=== PATIENT | female | born 1980 | race Caucasian/White ===

== ENCOUNTER 2020-10-11 09:31 | Inpatient (IN) | payer SELFPAY ==
[2020-10-11] VITALS (45 sets, daily range): BP systolic 149–212; BP diastolic 93–151; PULSE 0–107; RESP 10–31; TEMP 36.6–36.7; O2SAT 93–98; BMI 42.5
--- NOTE | 2020-10-11 10:38 | XRR_ITS ---
PROCEDURE INFORMATION: Exam: XR Chest, 1 View Exam date and time: 10/11/2020 10:53 AM Age: 40 years old Clinical indication: Cough and dyspnea; Additional info: Dyspnea/cough TECHNIQUE: Imaging protocol: XR of the chest Views: 1 view. COMPARISON: CT Chest/Abdomen/Pelvis w IV* 06/22/2016 12:01 AM FINDINGS: Lungs: Interstitial prominence, without acute infiltrate. Pleural space: No pleural effusion. Heart/Mediastinum: Cardiac silhouette upper limits of normal in size. Bones/joints: Unremarkable. XR/XR chest 1V portable [id number] IMPRESSION: Interstitial prominence, without acute infiltrate.
--- NOTE | 2020-10-11 10:38 | CT_ITS ---
WS: [id number] CT HEAD NONCONTRAST HISTORY: L side numbness TECHNIQUE: Contiguous axial imaging performed through the brain in 2.5 mm imaging. Bone and soft tiss ue windows. Sagittal and coronal reformats reviewed. All CT scans at [facility] use at ast one of these dose optimization techniques: automated exposure control; mA and/or kV adjustment pe r patient size (includes targeted exams where dose is matched to clinical indication); or iterative r econstruction. DLP: 777.42 mGy.cm COMPARISON: None available. No acute intracranial hemorrhage, midline shift or mass effect. No significant atrophy. Prior lacunar infarct in the RIGHT thalamus. Ventricles: Normal size with no hydrocephalus. Paranasal sinuses: As visualized are clear. Mastoid air cells: Well pneumatized. Calvarium and scalp: Skull is intact with no soft tissue edema or swelling. CT/CT head wo con* [id number] IMPRESSION: 1. No acute intracranial hemorrhage or edema. 2. Prior RIGHT thalamic lacunar infarct.
--- NOTE | 2020-10-11 10:40 | ECG_ITS ---
[facility] Test Date: 2020-10-11 Pat Name: Susie Fitzgerald Department: Room: Gender: Female Jukebox Checker: ts : 1980 Requested By: Chepe Morton Order Number: [id number] Adolfo MD: Jeni Harris M.D. Measurements Intervals [place] Rate: 104 P: 41 DE: 124 QRS: 0 QRSD: 88 T: 96 QT: 349 QTc: 460 Interpretive Statements SINUS T[address] DEVIATION AND MODERATE T-WAVE ABNORMALITY, CONSIDER LATERAL ISCHEMIA [-0.1+ mV T WAVE IN I/aVL/V5/V6] No previous ECG available for comparison Electronically Signed On 10-11-2020 20:27:19 LEARNING ENGINEER by Jeni Harris M.D. [id number]
--- NOTE | 2020-10-11 10:55 | ED_ITS ---
HPI - Weakness General: Chief complaint: Weakness Stated complaint: Numbness on Left Side of Body/All over Time Seen by Provider: 10/11/20 10:37 History of Present Illness: HPI Narrative: 40-year-old female presents emergency room complaining of various numbness in her lower extremities and then in her entire left side over the last couple weeks. Initially it seemed to begin with proximal anterior right thigh having numbness or paresthesias. States she can feel like hot or cold sensation on the thigh. Then it began to be on the left side she says both the arm and the leg. She denies difficulty speech swallowing or vision she denies any difficulty with any ataxia or gait. She does have markedly elevated blood pressure and has not been taking anything for it or been followed for by a physician. She also complaining of generalized weakness on her left side. MD Complaint: focal weakness, numbness, lack of energy and difficulty walking Onset (ago): day(s) Duration: intermittent Location: LUE and LLE Migration: distal Severity: moderate Quality: tingling and numbness Relieving factors: none Exacerbating factors: none Associated symptoms: Denies chest pain, chills, confusion, melena, decreased appetite, diaphoresis, dysuria, easy bruising, fever(s), headache(s), myalgias, nausea, rash, short of breath, syncope or vomiting Review of Systems Const: Denies: fever(s), chills or diaphoresis ENMT: Denies: throat pain, ear or mastoid pain, nasal discharge or nasal congestion Card: Denies: chest pain or syncope Resp: Denies: dyspnea, productive cough or non-productive cough GI: Denies: nausea, vomiting or melena : Denies: dysuria Skin/Breast: Denies: rash or pruritus Neuro: Denies: headache(s) or confusion Macho/Lymph: Denies: easy bruising [facility] ED PFSH: Medical History (Updated 10/11/20 @ 13:16 by Chepe Raman DO) HTN (hypertension) Female Reproductive History: Date of last menstrual period: 10/11/20 Physical Exam Const: COMMON NORMALS: no acute distress GENERAL APPEARANCE: cooperative and comfortable ORIENTATION/CONSCIOUSNESS: Yes awake, Yes oriented to person, Yes oriented to place and Yes oriented to time HENMT: COMMON NORMALS: normocephalic, atraumatic and hearing grossly normal bilaterally HEAD & SCALP: normocephalic and atraumatic Neck/C-Spine: COMMON NORMALS: no JVD Resp: COMMON NORMALS: normal respiratory effort, No retractions, No use of accessory muscles and clear to auscultation bilaterally AUSCULTATION: clear to auscultation bilaterally Cardio: COMMON NORMALS: no JVD, regular rate, regular rhythm and No murmurs present (Cardio) RATE: regular rate RHYTHM: regular rhythm GI: COMMON NORMALS: Soft to palpation and No hepatosplenomegaly present AUSCULTATION: Yes normoactive bowel sounds PALPATION: Yes Soft to palpation, No Tenderness to palpation present (GI), No Guarding due to palpation present (GI) and Yes No hepatosplenomegaly present Extremity: COMMON NORMALS: normal to inspection, capillary refill normal, no clubbing, cyanosis or edema, no calf tenderness and no pedal edema Neuro: SENSORIUM/ORIENTATION: Yes oriented to person, Yes oriented to place and Yes oriented to time Skin: COMMON NORMALS: no rashes or lesions noted GENERAL SKIN EXAM: no rashes or lesions noted Course Vital Signs: Vital signs: Vital Signs Temperature 98.1 F 10/11/20 09:49 Pulse Rate 77 10/11/20 12:52 Respiratory Rate 22 H 10/11/20 12:52 Blood Pressure 191/145 10/11/20 12:52 Pulse Oximetry 97 10/11/20 12:52 MDM - Weakness MDM Narrative: Medical decision making narrative: Patient has persistent symptoms in the left side also has a right thumb aches stroke subacute. Her blood pressure is not responded well to interventions thus far will admit her for accelerated hypertension with evidence of a stroke. Lab Data: Labs: Lab Results 10/11/20 10/11/20 10/11/20 Range/Units 10:20 10:20 10:20 WBC 11.5 H (4.0-10.0) 10^3/ uL RBC 5.80 H (4.1-5.3) 10^6/u L Hgb 15.8 H (11.5-15.3) g/dL Hct 52.6 H (37.0-47.0) % MCV 90.7 (81-99) fL MCH 27.2 L (28.0-34.0) pg MCHC 30.0 (30.0-36.0) g/dL RDW 14.4 (12.1-15.1) % Plt Count 272 (130-400) 10^3/c mm MPV 9.7 (7.4-10.4) fL Neut % (Auto) 71.7 % Lymph % (Auto) 18.4 % [place] % (Auto) 5.2 % Eos % (Auto) 3.1 % Baso % (Auto) 1.0 % Neut # (Auto) 8.24 H (1.8-7.7) 10^3/u L Lymph # (Auto) 2.1 (0.8-4.8) 10^3/u L [place] # (Auto) 0.6 (0.2-0.9) 10^3/u L Eos # (Auto) 0.4 (0.0-0.8) 10^3/u L Baso # (Auto) 0.1 (0.0-0.1) 10^3/u L Nucleated RBC % (a uto) 0 % Nucleated RBCs # 0.0 /100WBC Sodium 136 (136-145) mmol/L Potassium 4.2 (3.5-5.1) mmol/L Chloride 100 (98-107) mmol/L Carbon Dioxide 24 (22-29) mmol/L Anion Gap 16.2 (5-19) BUN 13 (6-20) mg/dL Creatinine 1.2 H (0.5-0.9) mg/dL GFR Calculation 50.0 L (90-130) mL/min Glucose 85 (65-115) mg/dL Calculated Osmolal ity 281 L (285-295) mOsm/k g Calcium 9.2 (8.5-10.5) mg/dL Total Bilirubin 0.2 (0.15-1.2) mg/dL AST 19 (0-32) U/L ALT 19 (0-33) U/L Alkaline Phosphata se 78 (35-105) IU/L Troponin T Baselin e 12 H (0-10) ng/L Troponin T 120 Min [place] (0-10) ng/L Delta Troponin T (0-10) ABS# Total Protein 7.6 (6.6-8.7) g/dL Albumin 4.1 (3.5-5.2) g/dL Globulin 3.5 (1.3-4.6) g/dL Urine Color (Yellow) Urine Appearance (CLEAR) Urine pH (5-7) Ur Specific Gravit y (1.005-1.030) Urine Protein (Negative) Urine Glucose (UA) (Normal) Urine Ketones (Negative) Urine Blood (Negative) Urine Nitrate (Negative) Urine Bilirubin (Negative) Urine Urobilinogen (Negative) mg/dL Ur Leukocyte Callie ase (Negative) Urine RBC (0-2) /hpf Urine WBC (0-5) /hpf Ur Squamous Epith Cells (0-5) /hpf Amorphous Sediment /hpf Urine Bacteria (NONE) /hpf Hyaline Casts /lpf Urine Mucus /hpf 10/11/20 10/11/20 Range/Units 11:55 12:25 WBC (4.0-10.0) 10^3/ uL RBC (4.1-5.3) 10^6/u L Hgb (11.5-15.3) g/dL Hct (37.0-47.0) % MCV (81-99) fL MCH (28.0-34.0) pg MCHC (30.0-36.0) g/dL RDW (12.1-15.1) % Plt Count (130-400) 10^3/c mm MPV (7.4-10.4) fL Neut % (Auto) % Lymph % (Auto) % [place] % (Auto) % Eos % (Auto) % Baso % (Auto) % Neut # (Auto) (1.8-7.7) 10^3/u L Lymph # (Auto) (0.8-4.8) 10^3/u L [place] # (Auto) (0.2-0.9) 10^3/u L Eos # (Auto) (0.0-0.8) 10^3/u L Baso # (Auto) (0.0-0.1) 10^3/u L Nucleated RBC % (a uto) % Nucleated RBCs # /100WBC Sodium (136-145) mmol/L Potassium (3.5-5.1) mmol/L Chloride (98-107) mmol/L Carbon Dioxide (22-29) mmol/L Anion Gap (5-19) BUN (6-20) mg/dL Creatinine (0.5-0.9) mg/dL GFR Calculation (90-130) mL/min Glucose (65-115) mg/dL Calculated Osmolal ity (285-295) mOsm/k g Calcium (8.5-10.5) mg/dL Total Bilirubin (0.15-1.2) mg/dL AST (0-32) U/L ALT (0-33) U/L Alkaline Phosphata se (35-105) IU/L Troponin T Baselin e (0-10) ng/L Troponin T 120 Min [place] 11.02 H (0-10) ng/L Delta Troponin T -0.98 L (0-10) ABS# Total Protein (6.6-8.7) g/dL Albumin (3.5-5.2) g/dL Globulin (1.3-4.6) g/dL Urine Color Yellow (Yellow) Urine Appearance Clear (CLEAR) Urine pH 5 (5-7) Ur Specific Gravit y 1.020 (1.005-1.030) Urine Protein Neg (Negative) Urine Glucose (UA) Trace H (Normal) Urine Ketones Negative (Negative) Urine Blood 3+ H (Negative) Urine Nitrate Negative (Negative) Urine Bilirubin Neg (Negative) Urine Urobilinogen Norm (Negative) mg/dL Ur Leukocyte Callie ase Negative (Negative) Urine RBC 0-4 H (0-2) /hpf Urine WBC 0-4 H (0-5) /hpf Ur Squamous Epith Cells 0-4 H (0-5) /hpf Amorphous Sediment Trace /hpf Urine Bacteria 1+ H (NONE) /hpf Hyaline Casts Rare /lpf Urine Mucus 1+ /hpf Discharge Plan Discharge Patient Disposition: Admitted As Inpatient Clinical Impression: HTN (hypertension), Hypertensive crisis, CVA (cerebral vascular accident) Condition: Stable Prescriptions: No Action Aspir-81 81 mg Tablet,Delayed Release (Dr/Ec) 162 - 324 mg PO PRN RF: 0 Coding Level of Care Code ED Beauty Consultant for Chg Jose Elias
[2020-10-11 10:57] LABS: Basophils # 0.1 10^3/uL (0.0-0.1); Eosinophils # 0.4 10^3/uL (0.0-0.8); Eosinophils % 3.1 %; Hematocrit 52.6 % (37.0-47.0); Hemoglobin 15.8 g/dL (11.5-15.3); Lymphocytes # 2.1 10^3/uL (0.8-4.8); Lymphocytes % 18.4 %; Mean Corpuscular Hemoglobin 27.2 pg (28.0-34.0); Mean Corpuscular Volume 90.7 fL (81-99); Mean Platelet Volume 9.7 fL (7.4-10.4); Monocytes # 0.6 10^3/uL (0.2-0.9); Monocytes % 5.2 %; Neutrophils # 8.24 10^3/uL (1.8-7.7); Neutrophils % 71.7 %; Nucleated Red Blood Cells % 0 %; Platelet Count 272 10^3/cmm (130-400); Red Cell Distribution Width 14.4 % (12.1-15.1); White Blood Count 11.5 10^3/uL (4.0-10.0)
[2020-10-11] MEDS: amlodipine 5 mg Tablet PO (10:59)
[2020-10-11] MEDS: metoprolol tartrate 1 mg/1 mL SDV 5 mL 5 MG IV ×2 (10:59→12:49)
[2020-10-11] MEDS: metoprolol tartrate 25 mg Tablet PO (10:59)
[2020-10-11 11:10] LABS: Alanine Aminotransferase 19 U/L (0-33); Albumin Level 4.1 g/dL (3.5-5.2); Alkaline Phosphatase 78 IU/L (35-105); Anion Gap 16.2 (5-19); Aspartate Amino Transferase 19 U/L (0-32); Blood Urea Nitrogen 13 mg/dL (6-20); Calcium 9.2 mg/dL (8.5-10.5); Carbon Dioxide 24 mmol/L (22-29); Chloride 100 mmol/L (98-107); Globulin 3.5 g/dL (1.3-4.6); Glucose 85 mg/dL (65-115); Osmolality Calculated 281 mOsm/kg (285-295); Potassium 4.2 mmol/L (3.5-5.1); Sodium 136 mmol/L (136-145); Total Bilirubin 0.2 mg/dL (0.15-1.2); Total Protein 7.6 g/dL (6.6-8.7)
[2020-10-11 11:11] LABS: Troponin(5th) Baseline 12 ng/L (0-10)
[2020-10-11 12:16] LABS: Add Urine Microscopic? YES; Bilirubin Urine Neg (Negative); Blood Urine 3+ (Negative); Glucose Urine UA Trace (Normal); Ketones Urine Negative (Negative); Leukocyte Esterase Urine Negative (Negative); Nitrate Urine Negative (Negative); Protein Urine Neg (Negative); Urine Appearance Clear (CLEAR); Urine Color Yellow (Yellow); Urobilinogen Urine Norm (Negative); pH Urine 5 (5-7)
[2020-10-11 12:17] LABS: RBC Urine 0-4 /hpf (0-2); WBC Urine 0-4 /hpf (0-5)
[2020-10-11 12:18] LABS: Add Urine Culture? No; Amorphous Sediment Urine TRACE /hpf; Bacteria Urine 1+ /hpf; Hyaline Casts Urine RARE /lpf; Mucus Urine 1+ /hpf; Squamous Epithelial Cell Urine 0-4 /hpf (0-5)
--- NOTE | 2020-10-11 12:40 | ECG_ITS ---
[facility] Test Date: 2020-10-11 Pat Name: Susie Fitzgerald Department: Room: Gender: Female Tool Room Supervisor: : 1980 Requested By: Chepe Morton Order Number: [id number] Adolfo MD: Jeni Harris M.D. Measurements Intervals [place] Rate: 80 P: 29 AK: 158 QRS: 10 QRSD: 93 T: 119 QT: 410 QTc: 474 Interpretive Statements SINUS RHYTHM ST DEVIATION AND MODERATE T-WAVE ABNORMALITY, CONSIDER LATERAL ISCHEMIA [-0.1+ mV T WAVE IN I/aVL/V5/V6] No previous ECG available for comparison Electronically Signed On 10-11-2020 20:50:42 SENIOR SALES ENGINEER by Jeni Harris M.D. [id number] f
[2020-10-11] MEDS: cloNIDine 0.1 mg Tablet PO (12:48)
[2020-10-11] MEDS: nitroglycerin 1 gm/inch oint Pkt 1 INCH TOPICAL (12:50)
[2020-10-11 12:53] LABS: Troponin 5 2HR 11.02 ng/L (0-10)
[2020-10-11 13:01] LABS: Troponin 5 2HR Delta -0.98 ABS# (0-10)
[2020-10-11] MEDS: nicardipine 20 MG/200 ML PREMIX 50 MG IV (13:33)
--- NOTE | 2020-10-11 16:03 | P.HP_ITS ---
Providers/Chief Complaint Admitting Physician: Karly Mendoza MD Chief Complaint: Numbness on Left Side of Body/All over History of Present Illness Susie Fitzgerald is a 40 year old female with a PMH HTN who pressnts to the ER today c/o left side body numbness and weakness. NIHSS on presentation was 0. Ct head showed old right thalamic lacunar infarct, no new changes. She was found to have hypertensive emergency with BP 212/120, received iv metoprolol, cllonidine and amlodipine iwthout significant improvement. Therafter started on nicardipine infusion and admitted to [facility]. SHe c/o some headache presnetly. denies chest pain, dyspnea, palpitations. Uncertain as to timing of her CVA noted on ct head. Reports being diagnosed with HTN few years ago. Has not been evaluted for secondary HTN in the past. Review of Systems General: Reports: 10 or more systems reviewed and unremarkable except in HPI and below Const: Denies: fever(s), chills or body aches Eyes: Denies: change in vision, blurry vision or photophobia ENMT: Reports: hoarseness; Denies: throat pain, enlarged tonsils, odynophagia or nasal congestion Card: Denies: chest pain, palpitations, irregular heart rhythm, edema, swelling of feet/ankles, lightheadedness, pre-syncope, dyspnea on exertion or orthopnea Resp: Denies: dyspnea, productive cough, non-productive cough, wheezing, stridor, pain on inspiration, change in phlegm color, hemoptysis or chest congestion GI: Denies: abdominal pain, nausea, vomiting, hematemesis, coffee ground emesis, dysphagia, heartburn, diarrhea, constipation, GI cramping, change in stool character, hematochezia or melena : Denies: flank pain, difficulty voiding, dysuria, urinary frequency, urinary urgency, urinary hesitancy or hematuria Musc: Denies: neck pain, back pain, extremity pain, joint swelling, joint warmth or deformity Neuro: Denies: headache(s), numbness in extremities, weakness in extremities, sensory changes, difficulty walking, frequent falls, dizziness, vertigo, behavioral changes, Slurred speech present or seizure-like activity Psych: Denies: anxiety, depression, suicidal ideation or homicidal ideation Endo: Denies: polyuria, polydipsia, tired all the time, cold intolerance or hot flashes Macho/Lymph: Denies: easy bruising or easy bleeding Medications/Allergies Home Medications Medication Instructions Recorded Confirmed Last Taken Type aspirin [Aspir-81] 162 - 324 mg PO PRN 10/11/20 10/11/20 Unknown History Allergies Allergy/AdvReac Type Severity Reaction Status Date / Time No Known Allergies Allergy Verified 10/11/20 13:10 PFSH Acute PFSH: Medical History HTN (hypertension) Female Reproductive History: Date of last menstrual period: 10/11/20 Vitals/I&O/Wt Last Vital Signs Temp 98.1 F 10/11/20 09:49 Pulse 75 10/11/20 13:35 Resp 18 10/11/20 13:35 BP 182/122 10/11/20 13:35 Pulse Ox 96 10/11/20 13:35 10/11/20 10/11/20 10/11/20 06:59 14:59 22:59 Intake Total 33.333 / 33.333 Balance 33.333 / 33.333 Weight last 48 hrs Weight 123.196 kg Physical Exam Const: COMMON NORMALS: no acute distress, average body habitus, patient oriented x3, no limitations, healthy appearing, alert and well nourished HENMT: COMMON NORMALS: normocephalic and atraumatic HEAD & SCALP: normocephalic and atraumatic Eye: COMMON NORMALS: Equal, round and reactive pupils present, EOMs intact bilaterally, conjunctivae normal and no scleral icterus CONJUNCTIVA: Yes conjunctivae normal PUPIL: Yes Equal, round and reactive pupils present Neck/C-Spine: COMMON NORMALS: no JVD Resp: COMMON NORMALS: normal respiratory effort, No retractions, No use of accessory muscles, clear to auscultation bilaterally and percussion normal AUSCULTATION: clear to auscultation bilaterally PERCUSSION: percussion normal Cardio: COMMON NORMALS: no JVD, regular rate, regular rhythm, S1 normal heart sound present, S2 normal heart sound present, No gallops present (Cardio), No clicks present (Cardio), No murmurs present (Cardio), No rub (Cardio) and Peripheral pulses 2+ throughout RATE: regular rate RHYTHM: regular rhythm HEART SOUNDS: S1 normal heart sound present and S2 normal heart sound present PERIPHERAL PULSES: Peripheral pulses 2+ throughout GI: COMMON NORMALS: Normal to inspection, nondistended, normoactive bowel sounds present, Soft to palpation, non-tender, No hepatosplenomegaly present, no masses and no bruits PALPATION: Yes Soft to palpation and Yes No hepatosplenomegaly present Extremity: COMMON NORMALS: normal to inspection, full ROM, capillary refill normal, no joint enlargement, no clubbing, cyanosis or edema, no calf tenderness and no pedal edema Neuro: COMMON NORMALS: patient oriented x3, CN's II-XII intact bilaterally, moves all extremities, no focal motor deficits, no sensory deficits noted, deep tendon reflexes 2+ bilaterally and gait normal SENSORIUM/ORIENTATION: Yes alert Psych: COMMON NORMALS: mental status grossly normal, Normal thought process present, cooperative, normal affect, speech normal, activity/motor behavior normal, denies hallucinations, denies homicidal ideation and denies suicidal ideation SPEECH: Yes normal speech THOUGHT PROCESS: Normal thought process present Skin: COMMON NORMALS: no rashes or lesions noted, no wounds, turgor normal, no jaundice, no petechiae and no mottling GENERAL SKIN EXAM: no rashes or lesions noted and turgor normal Data : 10/11/20 10:20 10/11/20 10:20 A&P Assessment and plan (1) Hypertensive crisis: started on cardene drip after which BP is better controlled overlap with po amlodipine 10mg qd continue ASA 81mg po qd possibility of secondary HTN given young age, hypertensive emergency and past CVA as seen on CT head check serum cortisol, TSH with am labs no radioradial or radiofemoral delay to suspect coarctation may be renovascular in nature given cr elevated at 1.2, if persistent, will check renal artery doppler to evalute for renal artery stenosis may be related to sleep apnea given BMI 42, outpatient sleep study recommended No current signs of heart failure or CVA currently Status: Acute (2) CVA (cerebral vascular accident): old thamalamic infarct, no gross neurological deficits at this time. Status: Acute Attestations Medical Necessity Statement*: >2midnight anticipated for management of hypertensive emergency Coding Level of Care Code Acute Auto Fleet Maintenance Manager [facility] Diagnoses Hypertensive crisis I16.9 CVA (cerebral vascular accident) I63.9
--- NOTE | 2020-10-11 16:40 | ECG_ITS ---
[facility] Test Date: 2020-10-11 Pat Name: Susie Fitzgerald Department: Room: 111 Gender: Female Real Estate Developer: : 1980 Requested By: Chepe Morton Order Number: [id number] Adolfo MD: Jeni Hraris M.D. Measurements Intervals [place] Rate: 80 P: 52 MI: 154 QRS: 1 QRSD: 100 T: 78 QT: 421 QTc: 487 Interpretive Statements SINUS RHYTHM POSSIBLE LEFT ATRIAL ENLARGEMENT [-0.1mV P WAVE IN V1/V2] ST DEVIATION AND MODERATE T-WAVE ABNORMALITY, CONSIDER LATERAL ISCHEMIA [-0.1+ mV T WAVE IN I/aVL/V5/V6] Compared to ECG 10/11/2020 13:57:57 No significant changes Electronically Signed On 10-11-2020 20:48:47 HOSPITAL RECRUITER by Jeni Harris M.D. [email or web address].[employer] IT/store/[id number]
[2020-10-11 17:00] LABS: Troponin 5 6HR 12.32 ng/L (0-10); Troponin 5 6HR Delta 0.32 ng/L (0-12)
[2020-10-11] MEDS: famotidine 20 mg Tablet PO (21:50)
[2020-10-12] VITALS (39 sets, daily range): BP systolic 149–213; BP diastolic 93–140; PULSE 73–90; RESP 13–21; TEMP 36.6–36.9; O2SAT 91–97
[2020-10-12] MEDS: zolpidem 5 mg Tablet PO (02:05)
[2020-10-12 04:49] LABS: Basophils # 0.1 10^3/uL (0.0-0.1); Basophils % 1.2 %; Eosinophils # 0.4 10^3/uL (0.0-0.8); Eosinophils % 3.7 %; Hematocrit 44.6 % (37.0-47.0); Hemoglobin 14.4 g/dL (11.5-15.3); Lymphocytes # 2.5 10^3/uL (0.8-4.8); Lymphocytes % 22.2 %; Mean Corpuscular HGB Conc 32.3 g/dL (30.0-36.0); Mean Corpuscular Hemoglobin 27.3 pg (28.0-34.0); Mean Corpuscular Volume 84.5 fL (81-99); Mean Platelet Volume 10.1 fL (7.4-10.4); Monocytes # 0.6 10^3/uL (0.2-0.9); Monocytes % 5.3 %; Neutrophils # 7.53 10^3/uL (1.8-7.7); Neutrophils % 67.2 %; Nucleated Red Blood Cells % 0 %; Platelet Count 381 10^3/cmm (130-400); Red Blood Count 5.28 10^6/uL (4.1-5.3); Red Cell Distribution Width 14.3 % (12.1-15.1); White Blood Count 11.2 10^3/uL (4.0-10.0)
[2020-10-12 05:10] LABS: Estmated Average Glucose 108; Hemoglobin A1C 5.4 % (4.0-6.0)
[2020-10-12 05:27] LABS: Alanine Aminotransferase 16 U/L (0-33); Albumin Level 3.7 g/dL (3.5-5.2); Alkaline Phosphatase 73 IU/L (35-105); Anion Gap 12.9 (5-19); Aspartate Amino Transferase 17 U/L (0-32); Blood Urea Nitrogen 12 mg/dL (6-20); Calcium 8.9 mg/dL (8.5-10.5); Carbon Dioxide 24 mmol/L (22-29); Chloride 102 mmol/L (98-107); Globulin 3.3 g/dL (1.3-4.6); Glomerular Filtration Rate 61.7 mL/min (90-130); Glucose 87 mg/dL (65-115); Osmolality Calculated 279 mOsm/kg (285-295); Potassium 3.9 mmol/L (3.5-5.1); Sodium 135 mmol/L (136-145); Total Bilirubin 0.4 mg/dL (0.15-1.2)
[2020-10-12 05:30] LABS: Thyroid Stimulating Hormone 2.01 uIU/mL (0.27-4.20)
[2020-10-12 05:38] LABS: Hepatitis A Antibody IgM Non-Reactive (Nonreactive); Hepatitis B Core AB, Total Non-Reactive (Nonreactive); Hepatitis B Surface AB 3.5 (0-8.5); Hepatitis B Surface Antigen Non-Reactive (Nonreactive); Hepatitis C Virus Antibody Non-Reactive (Nonreactive)
[2020-10-12 06:42] LABS: HIV 1 & 2 Antibody Non-Reactive (Non-Reactiv); HIV 1 & 2 Antigen Non-Reactive (Non-Reactiv)
[2020-10-12 06:43] LABS: Cortisol Random 5.09 ug/mL (2.47-19.5)
--- NOTE | 2020-10-12 08:36 | PC.CHAP ---
Pastoral Care Encounter/Spiritual Assessment Type of Contact [] Declined inside sales manager visit [] Patient/Family/Request visit [] Outpatient visit [] Follow-up visit [] Physician referral [] Code/Alert [x] Routine visit [] Staff referral [] Actively dying [] Patient sleeping [] Family support [] [] Out of room [] Palliative care [] [] Receiving care in room [] Pre-surgical visit [] Trauma [] Long length of stay [] ICU visit [] Other: Relational/Emotional Strength [] Patient feels connected with others/family/visitors/staff [] Distress [] Loneliness/isolation [] Abandonment Spirituality of Patient [] Person of Mikaela [] Attends Taoism of their Mikaela [] Believes in Prayer [] Reads Bible or Judaism materials [] There are Spiritual issues to be addressed Dough Mixer Operator Interventions [x] Prayer [x] Active listening [x] Non-anxious presence [x] Spiritual/emotional support [] Crisis/trauma care [] Spiritual counseling [] Bereavement support [] Provided bereavement packet [] Provided Bible/devotional materials [] Provided toy/stuffed animal, coloring book to patient or family member [] Provided Communion [] Anointing/[place] [] Salvation [x] Completed spiritual assessment [] Other: Impact on Illness or Injury [] Angry [] Fearful [] Anxious [] Often cries [] Exhaustion [] Unable to work [] Unable to attend episcopalian [] Unable to walk/stand [] Unable to read [] Unable to drive [] Unable to eat/drink [] Unable to sleep [] Unable to be with family [] Patient intubated [] Other: Summary patient resting well, enjoying breakfast... Time spent with patient 10 min
--- NOTE | 2020-10-12 08:37 | PC.CHAP ---
Pastoral Care Encounter/Spiritual Assessment Type of Contact [] Declined giver visit [] Patient/Family/Request visit [] Outpatient visit [] Follow-up visit [] Physician referral [] Code/Alert [] Routine visit [] Staff referral [] Actively dying [] Patient sleeping [] Family support [] [] Out of room [] Palliative care [] [] Receiving care in room [] Pre-surgical visit [] Trauma [] Long length of stay [] ICU visit [] Other: Relational/Emotional Strength [] Patient feels connected with others/family/visitors/staff [] Distress [] Loneliness/isolation [] Abandonment Spirituality of Patient [] Person of Mikaela [] Attends Samaritan of their Mikaela [] Believes in Prayer [] Reads Bible or Mormon materials [] There are Spiritual issues to be addressed Punch Machine Operator Interventions [] Prayer [] Active listening [] Non-anxious presence [] Spiritual/emotional support [] Crisis/trauma care [] Spiritual counseling [] Bereavement support [] Provided bereavement packet [] Provided Bible/devotional materials [] Provided toy/stuffed animal, coloring book to patient or family member [] Provided Communion [] Anointing/[place] [] Salvation [] Completed spiritual assessment [] Other: Impact on Illness or Injury [] Angry [] Fearful [] Anxious [] Often cries [] Exhaustion [] Unable to work [] Unable to attend yazidi [] Unable to walk/stand [] Unable to read [] Unable to drive [] Unable to eat/drink [] Unable to sleep [] Unable to be with family [] Patient intubated [] Other: Summary Time spent with patient
[2020-10-12] MEDS: famotidine 20 mg Tablet PO (08:58)
[2020-10-12] MEDS: amlodipine 10 mg Tablet PO (08:58)
[2020-10-12] MEDS: hyDRALAzine 10 mg Tablet PO (10:24)
--- NOTE | 2020-10-12 11:02 | P.DS_ITS ---
Discharge Providers Date of Admission: 10/11/20 12:37 Date of Discharge: October 12, 2020 Attending Provider at Admission: Karly Mendoza MD Attending Provider at Discharge: Karly Mendoza MD Diagnoses at Discharge Discharge Diagnosis (1) Hypertensive crisis: Status: Acute (2) CVA (cerebral vascular accident): Status: Acute Reason for Visit Reason for Visit: Numbness on Left Side of Body/All over Hospital Course Hospital Course Susie Fitzgerald is a 40 year old female with a PMH HTN who pressnts to the ER today c/o left side body numbness and weakness. NIHSS on presentation was 0. Ct head showed old right thalamic lacunar infarct, no new changes. She was found to have hypertensive emergency with BP 212/120, received iv metoprolol, cllonidine and amlodipine iwthout significant improvement. Therafter started on nicardipine infusion and admitted to [facility]. Uncertain as to timing of her CVA noted on ct head. Reports being diagnosed with HTN few years ago. Has not been evaluted for secondary HTN in the past. Does not follow with primary care provider due to lack of insurance. Her blood pressure was eventually controlled with nicardipine infusion and this morning also received additional doses of amlodipine, labetalol and Imdur. Blood pressure at the time of discharge is 160/107. Cortisol level was within normal range at 5.09, TSH within range at 2.01. Given 3+ blood noted in urine, possibility of renovascular hypertension was considered. Autoimmune antibody panel is pending at this time. HIV and hepatitis serologies were nonreactive. There was no radial radial or radial femoral delay noted to suggest coarctation of aorta. She will likely need renal imaging as outpatient should she continue to remain hypertensive in spite of being started on medications. Primary care provider has been arranged at the [facility] and she is encouraged to follow-up. Discharge medications include amlodipine hydralazine and metoprolol. Patient has also been encouraged to check her blood pressure twice a day and maintain a chart to take to her next primary care physician visit. Physical Exam Narrative: EXAM NARRATIVE: GEN: Awake, alert and oriented, no acute distress CVS: S1S2 N RS: CTA B/L Abd: Soft, nt/nd , bs+ PROGRESSIVE CARE UNIT REGISTERED NURSE: no focal neuro deficits Discharge Data Data Completed and Pending: Completed Studies During Hospitalization Category Date Time Status CT head wo con* [id number] Stat Cat Scan 10/11/20 10:38 Completed XR chest 1V rita ble [id number] Stat Exams 10/11/20 10:38 Completed Pending at discharge Category Date Time Status YONATAN Profile Rheum atology AM LABS Lab 10/12/20 03:26 Received Labs from last 24 hours 10/12/20 10/12/20 10/12/20 03:26 03:26 03:26 WBC RBC Hgb Hct MCV MCH MCHC RDW Plt Count MPV Neut % (Auto) Lymph % (Auto) Morrow % (Auto) Eos % (Auto) Baso % (Auto) Neut # (Auto) Lymph # (Auto) Morrow # (Auto) Eos # (Auto) Baso # (Auto) Nucleated RBC % (a uto) Nucleated RBCs # Sodium Potassium Chloride Carbon Dioxide Anion Gap BUN Creatinine GFR Calculation Glucose Estimat Average Gl ucose Hemoglobin A1c Calculated Osmolal ity Calcium Total Bilirubin AST ALT Alkaline Phosphata se Troponin T Baselin e Troponin T 120 Min wainwright Delta Troponin T Troponin T Hi Sens 6Hr Troponin T Hi Sens 6Hr Delta Total Protein Albumin Globulin TSH 2.01 Random Cortisol 5.09 Urine Color Urine Appearance Urine pH Ur Specific Gravit y Urine Protein Urine Glucose (UA) Urine Ketones Urine Blood Urine Nitrate Urine Bilirubin Urine Urobilinogen Ur Leukocyte Callie ase Urine RBC Urine WBC Ur Squamous Epith Cells Amorphous Sediment Urine Bacteria Hyaline Casts Urine Mucus YONATAN IFA Animal Tis Res Pending CHRISTINA-1 Antibody Pending SS-A Antibody Pending SS-B Antibody Pending Sm (Harrison) Antibod y Pending OCULAR CARE AIDE Antibody Pending Scl-70 Antibody Pending Anti-ds DNA IgG (C rith) Pending Centromere B Antib jen Pending Thyroid Peroxidase Ab Pending Complement C3c Pending Complement C4c Pending CH50 Classical Pat hway Pending Hepatitis A IgM Ab Hep Bs Antigen Hep Bs Antibody Hep B Core Total A b Hepatitis C Antibo dy HIV 1&2 Ab & HIV 1 Ag HIV 1&2 Antibody 10/12/20 10/12/20 10/12/20 03:26 03:26 03:26 WBC RBC Hgb Hct MCV MCH MCHC RDW Plt Count MPV Neut % (Auto) Lymph % (Auto) Morrow % (Auto) Eos % (Auto) Baso % (Auto) Neut # (Auto) Lymph # (Auto) Morrow # (Auto) Eos # (Auto) Baso # (Auto) Nucleated RBC % (a uto) Nucleated RBCs # Sodium Potassium Chloride Carbon Dioxide Anion Gap BUN Creatinine GFR Calculation Glucose Estimat Average Gl ucose 108 Hemoglobin A1c 5.4 Calculated Osmolal ity Calcium Total Bilirubin AST ALT Alkaline Phosphata se Troponin T Baselin e Troponin T 120 Min wainwright Delta Troponin T Troponin T Hi Sens 6Hr Troponin T Hi Sens 6Hr Delta Total Protein Albumin Globulin TSH Random Cortisol Urine Color Urine Appearance Urine pH Ur Specific Gravit y Urine Protein Urine Glucose (UA) Urine Ketones Urine Blood Urine Nitrate Urine Bilirubin Urine Urobilinogen Ur Leukocyte Callie ase Urine RBC Urine WBC Ur Squamous Epith Cells Amorphous Sediment Urine Bacteria Hyaline Casts Urine Mucus YONATAN IFA Animal Tis Res CHRISTINA-1 Antibody SS-A Antibody SS-B Antibody Sm (Harrison) Antibod y OCULAR CARE AIDE Antibody Scl-70 Antibody Anti-ds DNA IgG (C rith) Centromere B Antib jen Thyroid Peroxidase Ab Complement C3c Complement C4c CH50 Classical Pat [place]way Hepatitis A IgM Ab Non-reactive Hep Bs Antigen Non-reactive Hep Bs Antibody 3.5 Hep B Core Total A b Non-reactive Hepatitis C Antibo dy Non-reactive HIV 1&2 Ab & HIV 1 Ag Non-reactive HIV 1&2 Antibody Non-reactive 10/12/20 10/12/20 10/11/20 03:26 03:26 16:22 WBC 11.2 H RBC 5.28 Hgb 14.4 Hct 44.6 MCV 84.5 D MCH 27.3 L MCHC 32.3 D RDW 14.3 Plt Count 381 MPV 10.1 Neut % (Auto) 67.2 Lymph % (Auto) 22.2 Morrow % (Auto) 5.3 Eos % (Auto) 3.7 Baso % (Auto) 1.2 Neut # (Auto) 7.53 Lymph # (Auto) 2.5 Morrow # (Auto) 0.6 Eos # (Auto) 0.4 Baso # (Auto) 0.1 Nucleated RBC % (a uto) 0 Nucleated RBCs # 0.0 Sodium 135 L Potassium 3.9 Chloride 102 Carbon Dioxide 24 Anion Gap 12.9 BUN 12 Creatinine 1.0 H GFR Calculation 61.7 L Glucose 87 Estimat Average Gl ucose Hemoglobin A1c Calculated Osmolal ity 279 L Calcium 8.9 Total Bilirubin 0.4 AST 17 ALT 16 Alkaline Phosphata se 73 Troponin T Baselin e Troponin T 120 Min wainwright Delta Troponin T Troponin T Hi Sens 6Hr 12.32 H Troponin T Hi Sens 6Hr Delta 0.32 Total Protein 7.0 Albumin 3.7 Globulin 3.3 TSH Random Cortisol Urine Color Urine Appearance Urine pH Ur Specific Gravit y Urine Protein Urine Glucose (UA) Urine Ketones Urine Blood Urine Nitrate Urine Bilirubin Urine Urobilinogen Ur Leukocyte Callie ase Urine RBC Urine WBC Ur Squamous Epith Cells Amorphous Sediment Urine Bacteria Hyaline Casts Urine Mucus YONATAN IFA Animal Tis Res CHRISTINA-1 Antibody SS-A Antibody SS-B Antibody Sm (Harrison) Antibod y OCULAR CARE AIDE Antibody Scl-70 Antibody Anti-ds DNA IgG (C rith) Centromere B Antib jen Thyroid Peroxidase Ab Complement C3c Complement C4c CH50 Classical Pat [place]way Hepatitis A IgM Ab Hep Bs Antigen Hep Bs Antibody Hep B Core Total A b Hepatitis C Antibo dy HIV 1&2 Ab & HIV 1 Ag HIV 1&2 Antibody 10/11/20 10/11/20 10/11/20 12:25 11:55 10:20 WBC RBC Hgb Hct MCV MCH MCHC RDW Plt Count MPV Neut % (Auto) Lymph % (Auto) Morrow % (Auto) Eos % (Auto) Baso % (Auto) Neut # (Auto) Lymph # (Auto) Morrow # (Auto) Eos # (Auto) Baso # (Auto) Nucleated RBC % (a uto) Nucleated RBCs # Sodium Potassium Chloride Carbon Dioxide Anion Gap BUN Creatinine GFR Calculation Glucose Estimat Average Gl ucose Hemoglobin A1c Calculated Osmolal ity Calcium Total Bilirubin AST ALT Alkaline Phosphata se Troponin T Baselin e 12 H Troponin T 120 Min wainwright 11.02 H Delta Troponin T -0.98 L Troponin T Hi Sens 6Hr Troponin T Hi Sens 6Hr Delta Total Protein Albumin Globulin TSH Random Cortisol Urine Color Yellow Urine Appearance Clear Urine pH 5 Ur Specific Gravit y 1.020 Urine Protein Neg Urine Glucose (UA) Trace H Urine Ketones Negative Urine Blood 3+ H Urine Nitrate Negative Urine Bilirubin Neg Urine Urobilinogen Norm Ur Leukocyte Callie ase Negative Urine RBC 0-4 H Urine WBC 0-4 H Ur Squamous Epith Cells 0-4 H Amorphous Sediment Trace Urine Bacteria 1+ H Hyaline Casts Rare Urine Mucus 1+ YONATAN IFA Animal Tis Res CHRISTINA-1 Antibody SS-A Antibody SS-B Antibody Sm (Harrison) Antibod y OCULAR CARE AIDE Antibody Scl-70 Antibody Anti-ds DNA IgG (C rith) Centromere B Antib jen Thyroid Peroxidase Ab Complement C3c Complement C4c CH50 Classical Pat [place]way Hepatitis A IgM Ab Hep Bs Antigen Hep Bs Antibody Hep B Core Total A b Hepatitis C Antibo dy HIV 1&2 Ab & HIV 1 Ag HIV 1&2 Antibody 10/11/20 10:20 WBC RBC Hgb Hct MCV MCH MCHC RDW Plt Count MPV Neut % (Auto) Lymph % (Auto) [place]row % (Auto) Eos % (Auto) Baso % (Auto) Neut # (Auto) Lymph # (Auto) Morrow # (Auto) Eos # (Auto) Baso # (Auto) Nucleated RBC % (a uto) Nucleated RBCs # Sodium 136 Potassium 4.2 Chloride 100 Carbon Dioxide 24 Anion Gap 16.2 BUN 13 Creatinine 1.2 H GFR Calculation 50.0 L Glucose 85 Estimat Average Gl ucose Hemoglobin A1c Calculated Osmolal ity 281 L Calcium 9.2 Total Bilirubin 0.2 AST 19 ALT 19 Alkaline Phosphata se 78 Troponin T Baselin e Troponin T 120 Min wain[place] Delta Troponin T Troponin T Hi Sens 6Hr Troponin T Hi Sens 6Hr Delta Total Protein 7.6 Albumin 4.1 Globulin 3.5 TSH Random Cortisol Urine Color Urine Appearance Urine pH Ur Specific Gravit y Urine Protein Urine Glucose (UA) Urine Ketones Urine Blood Urine Nitrate Urine Bilirubin Urine Urobilinogen Ur Leukocyte Callie ase Urine RBC Urine WBC Ur Squamous Epith Cells Amorphous Sediment Urine Bacteria Hyaline Casts Urine Mucus YONATAN IFA Animal Tis Res CHRISTINA-1 Antibody SS-A Antibody SS-B Antibody Sm (Harrison) Antibod y OCULAR CARE AIDE Antibody Scl-70 Antibody Anti-ds DNA IgG (C rith) Centromere B Antib jen Thyroid Peroxidase Ab Complement C3c Complement C4c CH50 Classical Pat hway Hepatitis A IgM Ab Hep Bs Antigen Hep Bs Antibody Hep B Core Total A b Hepatitis C Antibo dy HIV 1&2 Ab & HIV 1 Ag HIV 1&2 Antibody Vitals: Last Vital Signs Temp 98.4 F 10/12/20 07:23 Pulse 83 10/12/20 07:23 Resp 17 10/12/20 07:23 BP 180/125 10/12/20 07:23 Pulse Ox 95 10/12/20 07:23 Discharge Plan Discharge Patient Disposition: Home Condition: Stable Prescriptions: New hydralazine 10 mg Tablet 25 mg PO TID 30 Days Qty: 225 RF: 0 amlodipine 10 mg Tablet 10 mg PO DAILY 30 Days RF: 0 famotidine 20 mg Tablet 20 mg PO BID Qty: 0 RF: 0 metoprolol succinate 25 mg tablet extended release 24 hr 25 mg PO DAILY Qty: 30 RF: 0 Changed aspirin 81 mg Tablet,Delayed Release (Dr/Ec) 81 mg PO PRN Qty: 0 RF: 0 Discharge Orders: Discharge Order (Routine); Ordered 10/12/20 Ordered By: Karly Mendoza Referrals: YECENIA BAUER [Staff Physician] - 2 weeks Milana Ng FNP-C [Nurse Practitioner] - 10/26/20 10:40 am Discharge Diet: Cardiac and Low Salt Discharge Activity: Increase activity as tolerated Activity Restrictions/Additional Instructions: Check your blood pressure twice a day, maintain a blood pressure chart and take to your primary care appointments Discharge Attestations Time Spent in Discharge Care*: greater than 30 min Quality Metrics Clinical Quality Measures During this hospital stay, did patient experience: None Coding Level of Care Code Acute Heel Attacher for Noris Moctezuma Diagnoses Hypertensive crisis I16.9 CVA (cerebral vascular accident) I63.9
[2020-10-12] MEDS: labetalol 5 mg/mL SDV 20mL 10 MG IVP (11:27)
[2020-10-12] MEDS: isosorbide mononitrate ER 30 mg Tablet PO (12:55)
--- NOTE | 2020-10-12 13:55 | PC.NURSE ---
patient discharged home self care at this time. patient provided with discharge instructions and new medications patient verbalizes understanding of all instructions given IV discontinued cath intact min bleeding noted patient assisted to private vehicle by staff via wheel chair. patient alert oriented and in stable condition.
[2020-10-13 12:18] LABS: COMPLEMENT, TOTAL (CH50) 51 U/mL (31-60)
[2020-10-13 15:18] LABS: COMPLEMENT COMPONENT C3C 153 mg/dL (83-193); COMPLEMENT COMPONENT C4C 33 mg/dL (15-57)
[2020-10-14 15:32] LABS: CENTROMERE B ANTIBODY <1.0 NEG AI (<1.0 NEG); JO-1 ANTIBODY <1.0 NEG AI (<1.0 NEG); RNP ANTIBODY 1.0 POS AI (<1.0 NEG); SCL-70 ANTIBODY <1.0 NEG AI (<1.0 NEG); SJOGREN'S ANTIBODY (SS-A) <1.0 NEG AI (<1.0 NEG); SM ANTIBODY <1.0 NEG AI (<1.0 NEG); SS-B <1.0 NEG AI (<1.0 NEG)
[2020-10-16 11:43] LABS: ANA SCREEN, IFA NEGATIVE (NEGATIVE)
[2020-10-18 00:37] LABS: DNA AB (DS) CRITHIDIA,IFA NEGATIVE (NEGATIVE)
[2020-10-18 10:03] LABS: THYROID PEROXIDASE ANTIBODIES 1 IU/mL (<9)
== END 2020-10-12 13:55 | disposition home or self-care (01) | DRG 305 ==
LOC: ER 16:10 → CSU 16:58
PROVIDERS: Admitting Provider Student in an Organized Health Care Education/Training Program; Emergency Provider Family Medicine; Visit Provider Student in an Organized Health Care Education/Training Program
DX: I16.1 Hypertensive emergency (principal); I10 Essential (primary) hypertension; Z86.73 Personal history of transient ischemic attack (TIA), and cerebral infarction without residual deficits
CPT/HCPCS: 12345; 36415; 70450; 71045; 80053; 81001; 82533; 83036; 84443; 84484; 85025; 86705; 86706; 86709; 86803; 87340; 87806; 93005; 99283; J3490

== ENCOUNTER 2022-07-21 20:27 | Observation (INO) | payer MEDICAID, SELFPAY ==
[2022-07-21] VITALS (25 sets, daily range): BP systolic 107–199; BP diastolic 82–133; PULSE 77–104; RESP 16–22; O2SAT 90–100; BMI 18.3
--- NOTE | 2022-07-21 20:31 | CTR_ITS ---
PROCEDURE INFORMATION: Exam: CT Head Without Contrast Exam date and time: 07/21/2022 8:28 PM Age: 41 years old Clinical indication: Stroke-like symptoms; Headache and vomiting; Additional info: DOLL with vomiting and BP over 200 systolic. History of prior CVA. TECHNIQUE: Imaging protocol: Computed tomography of the head without contrast. Radiation optimization: All CT scans at this facility use at least one of these dose optimization techniques: automated exposure control; mA and/or kV adjustment per patient size (includes targeted exams where dose is matched to clinical indication); or iterative reconstruction. Other technique: STROKE PROTOCOL was implemented. COMPARISON: CT head wo con* [id number] 10/11/2020 11:11 AM RADIATION DOSE METRICS: Total DLP (mGy-cm): 1042.68 FINDINGS: Brain: There are well-defined hypodensities in the basal ganglia and thalami bilaterally consistent with chronic lacunar infarcts. These are more numerous than on the previous examination of 10/11/2020. There is no intracranial mass, hemorrhage or edema. There is a well-defined chronic appearing lacunar infarct in the left mackenzie new from the previous study. Cerebral ventricles: Ventricles are within normal limits of size. Paranasal sinuses: Visualized sinuses are unremarkable. No fluid levels. Mastoid air cells: Visualized mastoid air cells are well aerated. Bones/joints: Unremarkable. No acute fracture. Soft tissues: Unremarkable. CT/CT head wo con* [id number] IMPRESSION: 1. Bilateral chronic appearing lacunar infarcts increased from 10/11/2020. 2. Chronic appearing pontine lacunar infarct new from 10/11/2020. 3. No acute intracranial hemorrhage. ASSESSMENT: ASPECTS ([place] Stroke Program Early CT Score) is 10.
--- NOTE | 2022-07-21 20:31 | CTR_ITS ---
PROCEDURE INFORMATION: Exam: CTA Head With Contrast, Arteriography Exam date and time: 07/21/2022 8:34 PM Age: 41 years old Clinical indication: Pain; Headache; Patient HX: DOLL with vomiting and BP over 200 systolic. History of prior CVA. ; Additional info: Headache HTN TECHNIQUE: Imaging protocol: Computed tomographic angiography of the head with contrast. Exam focused on the arteries. 3D rendering (Not supervised by radiologist): MIP and/or 3D reconstructed images were created by the technologist. Radiation optimization: All CT scans at this facility use at least one of these dose optimization techniques: automated exposure control; mA and/or kV adjustment per patient size (includes targeted exams where dose is matched to clinical indication); or iterative reconstruction. Contrast material: OMNI 350; Contrast volume: 95 ml; Contrast route: INTRAVENOUS (IV); COMPARISON: CT head wo con* [id number] 07/21/2022 8:28 PM RADIATION DOSE METRICS: Total DLP (mGy-cm): 519.02 FINDINGS: ANTERIOR CIRCULATION: Right internal carotid artery: Intracranial segment is patent with no significant stenosis. No aneurysm. Right middle cerebral artery: No occlusion or significant stenosis. No aneurysm. Right anterior cerebral artery: No occlusion or significant stenosis. No aneurysm. Left internal carotid artery: Intracranial segment is patent with no significant stenosis. No aneurysm. Left middle cerebral artery: No occlusion or significant stenosis. No aneurysm. Left anterior cerebral artery: No occlusion or significant stenosis. No aneurysm. POSTERIOR CIRCULATION: Right vertebral artery: No occlusion or significant stenosis. No aneurysm. Left vertebral artery: No occlusion or significant stenosis. No aneurysm. Basilar artery: No occlusion or significant stenosis. No aneurysm. Right posterior cerebral artery: No occlusion or significant stenosis. No aneurysm. Left posterior cerebral artery: No occlusion or significant stenosis. No aneurysm. Brain: See CT head report. Cerebral ventricles: No ventriculomegaly. Bones/joints: Unremarkable. No acute fracture. Soft tissues: Unremarkable. PROCEDURE INFORMATION: Exam: CTA Neck With Contrast Exam date and time: 07/21/2022 8:34 PM Age: 41 years old Clinical indication: Pain; Headache; Patient HX: DOLL with vomiting and BP over 200 systolic. History of prior CVA. ; Additional info: Headache HTN TECHNIQUE: Imaging protocol: Computed tomographic angiography of the neck with contrast. 3D rendering (Not supervised by radiologist): MIP and/or 3D reconstructed images were created by the technologist. Radiation optimization: All CT scans at this facility use at least one of these dose optimization techniques: automated exposure control; mA and/or kV adjustment per patient size (includes targeted exams where dose is matched to clinical indication); or iterative reconstruction. Contrast material: OMNI 350; Contrast volume: 95 ml; Contrast route: INTRAVENOUS (IV); COMPARISON: CT head wo con* [id number] 07/21/2022 8:28 PM RADIATION DOSE METRICS: Total DLP (mGy-cm): 519.02 FINDINGS: Right common carotid artery: No stenosis. No dissection or occlusion. Right internal carotid artery: There is some mild plaque in the proximal right internal carotid artery with stenosis measuring less than 20% according to the NASCET criteria. No dissection or occlusion. Right external carotid artery: No occlusion or stenosis of the origin. Left common carotid artery: There is some mild plaque in the proximal right internal carotid artery with stenosis measuring less than 20% according to the NASCET criteria. No dissection or occlusion. Left internal carotid artery: No stenosis of the extracranial segment. No dissection or occlusion. Left external carotid artery: No occlusion or stenosis of the origin. Right vertebral artery: No stenosis. No dissection or occlusion. Left vertebral artery: No stenosis. No dissection or occlusion. Soft tissues: Normal. No significant soft tissue swelling. Bones/joints: No acute fracture. CT/CT angio headneck* [id number] IMPRESSION: No large vessel stenosis or occlusion. IMPRESSION: Mild stenosis proximal right and left internal carotid artery in the neck. No significant stenosis or occlusion. REFERENCES: NASCET CRITERIA. The degree of stenosis in the cervical segment of the internal carotid artery is based on NASCET criteria. Normal is no stenosis. Mild is less than 50% stenosis. Moderate is 50-69% stenosis. Severe is 70% to 99% stenosis. Total occlusion is no detectable patent lumen.
--- NOTE | 2022-07-21 20:36 | XRR_ITS ---
PROCEDURE INFORMATION: Exam: XR Chest Exam date and time: 07/21/2022 9:35 PM Age: 41 years old Clinical indication: Other: Poss CVA; Patient HX: DOLL with n/v. BP over 200 systolic. History of prior CVA. ; Additional info: Cp TECHNIQUE: Imaging protocol: Radiologic exam of the chest. Views: 1 view. COMPARISON: CR XR chest 1V portable [id number] 10/11/2020 10:42 AM FINDINGS: Lungs: Unremarkable. No consolidation. Pleural spaces: Unremarkable. No pleural effusion. No pneumothorax. Heart/Mediastinum: Unremarkable. No cardiomegaly. Bones/joints: Unremarkable. XR/XR chest 1V portable [id number] IMPRESSION: No acute findings.
--- NOTE | 2022-07-21 20:36 | ECG_ITS ---
[facility] Test Date: 2022-07-21 Pat Name: Susie Fitzgerald Department: Room: Gender: Female Funeral Home Attendant: : 1980 Requested By: Shahbaz Hubbard Order Number: [id number] Adolfo MD: Chavez Fu M.D. Measurements Intervals [place] Rate: 85 P: 45 MT: 166 QRS: -8 QRSD: 108 T: 105 QT: 402 QTc: 478 Interpretive Statements SINUS RHYTHM POSSIBLE LEFT ATRIAL ENLARGEMENT [-0.1mV P-WAVE IN V1/V2] LEFT VENTRICULAR HYPERTROPHY AND ST-T CHANGE [VOLTAGE CRITERIA PLUS ST/T ABNORMALITY] Compared to ECG 10/11/2020 17:01:59 Left ventricular hypertrophy now present ST (T wave) deviation now present T-wave abnormality no longer present Possible ischemia no longer present Electronically Signed On 07-23-2022 22:04:16 CDT by Chavez Fu M.D. [id number] f
[2022-07-21] MEDS: iohexol 350 mg/mL 100 mL Btl IV (20:39)
--- NOTE | 2022-07-21 20:45 | PC.NURSE ---
patient assisted to bsc, attempted to obtain urine specimen, patient states 'i have to go too bad to mess with that right now but next time . will reattempt. void x 1 clear yellow.
[2022-07-21] MEDS: nitroglycerin 1 gm/inch oint Pkt 1 INCH TOPICAL (20:52)
[2022-07-21 20:53] LABS: Basophils # 0.1 10^3/uL (0.0-0.1); Basophils % 0.8 %; Eosinophils # 0.3 10^3/uL (0.0-0.8); Eosinophils % 2.1 %; Hematocrit 42.2 % (37.0-47.0); Hemoglobin 13.2 g/dL (11.5-15.3); Lymphocytes # 1.8 10^3/uL (0.8-4.8); Lymphocytes % 11.7 %; Mean Corpuscular HGB Conc 31.3 g/dL (30.0-36.0); Mean Corpuscular Hemoglobin 25.1 pg (28.0-34.0); Mean Corpuscular Volume 80.2 fl (81-99); Mean Platelet Volume 10.3 fL (7.4-10.4); Monocytes # 0.8 10^3/uL (0.2-0.9); Monocytes % 4.9 %; Neutrophils # 12.48 10^3/uL (1.8-7.7); Nucleated Red Blood Cells % 0 %; Platelet Count 324 10^3/cmm (130-400); Red Blood Count 5.26 10^6/uL (4.1-5.3); Red Cell Distribution Width 15.7 % (12.1-15.1); White Blood Count 15.6 10^3/uL (4.0-10.0)
[2022-07-21] MEDS: nicardipine 20 MG/200 ML PREMIX 50 MG IV (20:55)
[2022-07-21] MEDS: ondansetron 2 mg/ML SDV 2 mL 4 MG IVP (21:01)
--- NOTE | 2022-07-21 21:02 | PC.NURSE ---
fsbs 117
[2022-07-21 21:04] LABS: INR 1.02 (0.8-1.2)
[2022-07-21 21:05] LABS: Partial Thromboplastin Time 30.2 SECONDS (23.9-36.7)
[2022-07-21 21:07] LABS: Glucose Point of Care 117 mg/dL (70-110)
[2022-07-21 21:19] LABS: Troponin(5th) Baseline 25 ng/L (0-10)
[2022-07-21 21:28] LABS: Alanine Aminotransferase 11 U/L (0-33); Albumin Level 3.1 g/dL (3.5-5.2); Alkaline Phosphatase 73 U/L (35-105); Anion Gap 12.7 (5-19); Aspartate Amino Transferase 14 U/L (0-32); Blood Urea Nitrogen 9 mg/dL (6-20); C Reactive Protein 11.3 mg/L (0.0-4.9); Calcium 8.2 mg/dL (8.5-10.5); Carbon Dioxide 26 mmol/L (22-29); Chloride 100 mmol/L (98-107); Creatine Phosphokinase 81 U/L (26-192); Globulin 2.4 g/dL (1.3-4.6); Glomerular Filtration Rate 41.6 mL/min (90-130); Glucose 129 mg/dL (65-115); NT Pro B Type Natriuretic Pept 1127 pg/mL (0-125); Osmolality Calculated 280 mOsm/kg (285-295); Potassium 3.7 mmol/L (3.5-5.1); Sodium 135 mmol/L (136-145); Total Bilirubin 0.2 mg/dL (0.15-1.2); Total Protein 5.5 g/dL (6.6-8.7)
--- NOTE | 2022-07-21 22:04 | W.ED.GENADLT ---
HPI - General Adult General: Chief complaint: General Medical Stated complaint: HIGH BLOOD PRESSURE/N/V Time Seen by Provider: 07/21/22 20:30 History of Present Illness: 41-year-old female presenting by EMS from home. She began to feel ill around 2 hours prior to calling ambulance. She complained of headache, chest discomfort, some shortness of breath. Her blood pressure was quite high. She began to vomit shortly thereafter. She experienced some numbness and tingling to the left side of her face and body, which is resolved. She is found by EMS to have a blood pressure of 256/160. She was given 100 mg of labetalol in route along with 0.8 mg of nitroglycerin with some reduction in her blood pressure to 190 systolic. Currently, her headache, chest discomfort, and nausea are improved but not gone. No neurological symptoms. She did have some visual changes as well which are resolved Associated symptoms: Reports chest pain, dyspnea, headache(s), nausea and vomiting; Deny confusion, rash or palpitations Review of Systems Const: Denies: fever(s), chills or body aches Eyes: Reports: change in vision ENMT: Denies: throat pain Card: Reports: chest pain; Denies: palpitations Resp: Reports: dyspnea; Denies: productive cough, non-productive cough or wheezing GI: Reports: nausea and vomiting; Denies: abdominal pain, diarrhea or hematochezia : Denies: difficulty voiding Musc: Denies: neck pain Skin/Breast: Denies: rash Neuro: Reports: headache(s), sensory changes and dizziness; Denies: weakness in extremities or confusion [facility] ED PFSH: Medical History HTN (hypertension) Female Reproductive History: Date of last menstrual period: 07/21/22 Physical Exam Const: COMMON NORMALS: alert GENERAL APPEARANCE: cooperative and ill appearing; not frail appearing HENMT: COMMON NORMALS: normocephalic, atraumatic and Normal external nose present HEAD & SCALP: normocephalic and atraumatic FACE & SINUS: normal facial exam and face symmetric NOSE: Normal external nose present Eye: COMMON NORMALS: Equal, round and reactive pupils present and EOMs intact bilaterally PUPIL: Yes Equal, round and reactive pupils present Chest: COMMONS NORMALS: normal inspection of the chest Resp: COMMON NORMALS: normal respiratory effort, No use of accessory muscles and clear to auscultation bilaterally AUSCULTATION: clear to auscultation bilaterally Cardio: COMMON NORMALS: regular rate and regular rhythm RATE: regular rate RHYTHM: regular rhythm GI: COMMON NORMALS: Normal to inspection, nondistended, normoactive bowel sounds present Extremity: GENERAL: Yes edema (mild) Neuro: LOU COMA SCALE: document GCS findings [place] coma scale eye opening: Spontaneous Lou coma scale verbal response: Orientated [place] coma scale motor response: Obey commands Lou coma scale total score: 15 SENSORIUM/ORIENTATION: Yes alert CRANIAL NERVES: Yes CN normal except as noted COORDINATION/BALANCE: [id number] test normal MOTOR EXAM: Pronator motor function not present COORDINATION: [id number] test normal Psych: COMMON NORMALS: mental status grossly normal Skin: COMMON NORMALS: no rashes or lesions noted GENERAL SKIN EXAM: no rashes or lesions noted Course Consultations: Consultation #1: Cooper Vital Signs: Vital signs: Vital Signs Pulse Rate 80 07/22/22 00:05 Respiratory Rate 16 07/21/22 23:56 Blood Pressure 163/98 07/22/22 00:05 Pulse Oximetry 95 07/22/22 00:48 Oxygen Delivery Me thod 07/22/22 00:22 [facility] - General Adult Medical Decision Making Patient with hypertensive emergency. CT of the head is negative for acute stroke. But does show some chronic appearing lacunar infarcts, some are new from 2019. CTA of the head and neck shows no dissection. White blood cell count is 15. She has some pulmonary vascular congestion on chest x-ray. Creatinine is 1.4 which is up from her baseline. She was given 1 inch of nitroglycerin paste topically, and started on nicardipine. Blood pressure is significantly improved. Currently 150/84. Her saturations are 90% on room air. Heart rate is 88. Currently nicardipine is titrated to off, but she may rebound. If so she may need it again. She will go to the ICU for the night. Hospitalist is aware and will see the patient in the ER Lab Data : 07/21/22 20:45 07/21/22 20:[address] 07/21/22 20:31 IMPRESSION: 1. Bilateral chronic appearing lacunar infarcts increased from 10/11/2020. 2. Chronic appearing pontine lacunar infarct new from 10/11/2020. 3. No acute intracranial hemorrhage. ASSESSMENT: ASPECTS ([place] Stroke Program Early CT Score) is 10. Head/Neck CTA 07/21/22 20:31 IMPRESSION: No large vessel stenosis or occlusion. IMPRESSION: Mild stenosis proximal right and left internal carotid artery in the neck. No significant stenosis or occlusion. REFERENCES: NASCET CRITERIA. The degree of stenosis in the cervical segment of the internal carotid artery is based on NASCET criteria. Normal is no stenosis. Mild is less than 50% stenosis. Moderate is 50-69% stenosis. Severe is 70% to 99% stenosis. Total occlusion is no detectable patent lumen. Chest X-Ray 07/21/22 20:36 IMPRESSION: No acute findings. Laboratory Results WBC 15.6 10^3/uL (4.0-10.0) H 07/21/22 20:45 RBC 5.26 10^6/uL (4.1-5.3) 07/21/22 20:45 Hgb 13.2 g/dL (11.5-15.3) 07/21/22 20:45 Hct 42.2 % (37.0-47.0) 07/21/22 20:45 MCV 80.2 fl (81-99) L 07/21/22 20:45 MCH 25.1 pg (28.0-34.0) L 07/21/22 20:45 MCHC 31.3 g/dL (30.0-36.0) 07/21/22 20:45 RDW 15.7 % (12.1-15.1) H 07/21/22 20:45 Plt Count 324 10^3/cmm (130-400) 07/21/22 20:45 MPV 10.3 fL (7.4-10.4) 07/21/22 20:45 Neut % (Auto) 80.0 % 07/21/22 20:45 Lymph % (Auto) 11.7 % 07/21/22 20:45 [place] % (Auto) 4.9 % 07/21/22 20:45 Eos % (Auto) 2.1 % 07/21/22 20:45 Baso % (Auto) 0.8 % 07/21/22 20:45 Neut # (Auto) 12.48 10^3/uL (1.8-7.7) H 07/21/22 20:45 Lymph # (Auto) 1.8 10^3/uL (0.8-4.8) 07/21/22 20:45 [place] # (Auto) 0.8 10^3/uL (0.2-0.9) 07/21/22 20:45 Eos # (Auto) 0.3 10^3/uL (0.0-0.8) 07/21/22 20:45 Baso # (Auto) 0.1 10^3/uL (0.0-0.1) 07/21/22 20:45 Nucleated RBC % (auto) 0 % 07/21/22 20:45 Nucleated RBCs # 0.0 /100WBC 07/21/22 20:45 PT 13.70 SECONDS (12.1-14.9) 07/21/22 20:45 INR 1.02 (0.8-1.2) 07/21/22 20:45 APTT 30.2 SECONDS (23.9-36.7) 07/21/22 20:45 Sodium 135 mmol/L (136-145) L 07/21/22 20:45 Potassium 3.7 mmol/L (3.5-5.1) 07/21/22 20:45 Chloride 100 mmol/L (98-107) 07/21/22 20:45 Carbon Dioxide 26 mmol/L (22-29) 07/21/22 20:45 Anion Gap 12.7 (5-19) 07/21/22 20:45 BUN 9 mg/dL (6-20) 07/21/22 20:45 Creatinine 1.4 mg/dL (0.5-0.9) H 07/21/22 20:45 GFR Calculation 41.6 mL/min (90-130) L 07/21/22 20:45 Glucose 129 mg/dL (65-115) H 07/21/22 20:45 POC Glucose 117 mg/dL (70-110) H 07/21/22 21:01 Calculated Osmolality 280 mOsm/kg (285-295) L 07/21/22 20:45 Calcium 8.2 mg/dL (8.5-10.5) L 07/21/22 20:45 Total Bilirubin 0.2 mg/dL (0.15-1.2) 07/21/22 20:45 AST 14 U/L (0-32) 07/21/22 20:45 ALT 11 U/L (0-33) 07/21/22 20:45 Alkaline Phosphatase 73 U/L (35-105) 07/21/22 20:45 Creatine Kinase 81 U/L (26-192) 07/21/22 20:45 Troponin T Baseline 25 ng/L (0-10) H 07/21/22 20:45 C-Reactive Protein 11.3 mg/L (0.0-4.9) H 07/21/22 20:45 NT-Pro-B Natriuret Pep 1127 pg/mL (0-125) H 07/21/22 20:45 Total Protein 5.5 g/dL (6.6-8.7) L 07/21/22 20:45 Albumin 3.1 g/dL (3.5-5.2) L 07/21/22 20:45 Globulin 2.4 g/dL (1.3-4.6) 07/21/22 20:45 Discharge Plan Discharge Patient Disposition: Admitted As Inpatient Admit Provider: Alhaji Gamboa Clinical Impression: Hypertensive emergency Condition: Stable Coding Level of Care Code ED Extrusion Bender for Chaseg Fwd Exam Comprehensive
--- NOTE | 2022-07-21 22:19 | PM.HP ---
Providers/Chief Complaint Chief Complaint: HIGH BLOOD PRESSURE/N/V History of Present Illness Susie Fitzgerald is a 41 year old female with past medical history of hypertension CVA, was brought in with chief complaint of, headache , shortness of breath chest pain, nausea vomiting tingling numbness, when EMS arrived at scene she was found to be extremely hypertensive her B/P was 256/160 , she was given labetalol as well as nitroglycerin in route, in ER she was started on labetalol drip. When I interacted with the patient her symptoms had significantly improved , She had no neurological deficit. Pertinent imaging studies done in the ER CT head without contrast: No acute intracranial pathology CTA head and neck: No flow-limiting stenosis no dissection EKG: Sinus rhythm with LVH X-ray chest: No acute findings. Pertinent labs: WBC 15.6, H&H 13/42 , PLT : 324 , sodium 135 , potassium 3.7 , BUN serum creatinine: 9/1.4 , Baseline : Troponin 25: proBNP: 1127 Review of Systems General: Reports: 10 or more systems reviewed and unremarkable except in HPI and below Const: Denies: fever(s), chills, body aches, change in appetite or diaphoresis Card: Denies: palpitations, edema, swelling of feet/ankles, dyspnea on exertion, orthopnea or leg pain with exertion Resp: Reports: dyspnea; Denies: productive cough, wheezing or pain on inspiration GI: Reports: nausea and vomiting; Denies: abdominal pain, diarrhea or constipation : Denies: flank pain Musc: Denies: back pain, extremity pain or extremity swelling Neuro: Reports: headache(s); Denies: difficulty walking or confusion Medications/Allergies Home Medications Medication Instructions Recorded Confirmed Last Taken Type aspirin 81 mg tablet,delayed 81 mg PO PRN #0 tabs 10/12/20 10/11/20 Unknown Rx release famotidine 20 mg tablet 20 mg PO BID #0 tabs 10/12/20 Unknown Rx metoprolol succinate 25 mg 25 mg PO DAILY #30 tabs 10/12/20 Unknown Rx tablet,extended release 24 hr Allergies Allergy/AdvReac Type Severity Reaction Status Date / Time No Known Allergies Allergy Verified 10/11/20 13:10 PFSH Acute PFSH: Medical History HTN (hypertension) Female Reproductive History: Date of last menstrual period: 07/21/22 Vitals/I&O/Wt Last Vital Signs Pulse 88 07/21/22 22:12 Resp 17 07/21/22 22:12 BP 150/84 07/21/22 22:16 Pulse Ox 90 07/21/22 22:12 O2 Del Method 07/21/22 22:12 07/21/22 07/21/22 07/21/22 06:59 14:59 22:59 Intake Total 56.667 / 56.667 Balance 56.667 / 56.667 Weight last 48 hrs Weight 53.07 kg Physical Exam Const: COMMON NORMALS: patient oriented x3 HENMT: COMMON NORMALS: normocephalic and atraumatic HEAD & SCALP: normocephalic and atraumatic Resp: COMMON NORMALS: clear to auscultation bilaterally AUSCULTATION: clear to auscultation bilaterally Cardio: COMMON NORMALS: regular rate, regular rhythm, S1 normal heart sound present, S2 normal heart sound present, No gallops present (Cardio), No murmurs present (Cardio), No rub (Cardio) and Peripheral pulses 2+ throughout RATE: regular rate RHYTHM: regular rhythm HEART SOUNDS: S1 normal heart sound present and S2 normal heart sound present PERIPHERAL PULSES: Peripheral pulses 2+ throughout GI: COMMON NORMALS: Normal to inspection, nondistended, normoactive bowel sounds present, Soft to palpation, non-tender, No hepatosplenomegaly present and no masses AUSCULTATION: Yes normoactive bowel sounds PALPATION: Yes Soft to palpation and Yes No hepatosplenomegaly present RECTAL EXAM: deferred Extremity: COMMON NORMALS: no clubbing, cyanosis or edema and no pedal edema Neuro: COMMON NORMALS: patient oriented x3 Data : 07/22/22 02:15 07/22/22 02:15 A&P Assessment and plan (1) Hypertensive emergency: (2) CVA (cerebral vascular accident): (3) HTN (hypertension): (4) Elevated troponin: Plan 41 year old female with past medical history of hypertension CVA, was brought in with chief complaint of, headache , shortness of breath chest pain, nausea vomiting tingling numbness. Assessment: Hypertensive emergency History of CVA Hypertension Plan: Patient was started on nicardipine drip in the ER currently blood pressure has dropped significantly below the goal, nicardipine drip has been stopped. Monitor blood pressure for now Will initiate amlodipine 10 mg p.o. daily from the morning On IV as needed labetalol Continue aspirin, metoprolol CODE STATUS: Full code DVT prophylaxis: On Lovenox Attestations Medical Necessity Statement*: Patient is to be in hospital for management of hypertensive emergency.Anticipated length of stay greater than 2 midnights. Time Spent in Patient Care: Greater than 35 minutes (>than 50% of time spent in counselling and/or direct pt care on unit). Coding Level of Care Code Acute Curriculum Advisory Teacher for Chg Fwd Exam Detailed Diagnoses Hypertensive emergency I16.1 CVA (cerebral vascular accident) I63.9 HTN (hypertension) I10 Elevated troponin R77.8
--- NOTE | 2022-07-21 22:20 | PC.NURSE ---
patient states that she used the bsc for void x 1, did not provide urine sample.
--- NOTE | 2022-07-21 22:36 | ECG_ITS ---
[facility] Test Date: 2022-07-22 Pat Name: Susie Fitzgerald Department: Room: [facility]03 Gender: Female Safety Equipment Tester: : 1980 Requested By: Shahbaz Hubbard Order Number: [id number] Adolof MD: Chavez Fu M.D. Measurements Intervals [place] Rate: 78 P: 52 AR: 164 QRS: -10 QRSD: 105 T: 94 QT: 423 QTc: 484 Interpretive Statements SINUS RHYTHM POSSIBLE LEFT ATRIAL ENLARGEMENT [-0.1mV P-WAVE IN V1/V2] LEFT VENTRICULAR HYPERTROPHY AND ST-T CHANGE [VOLTAGE CRITERIA PLUS ST/T ABNORMALITY] Compared to ECG 07/21/2022 21:49:32 No significant changes Electronically Signed On 07-23-2022 22:08:06 CDT by Chavez Fu M.D. [email or web address]
--- NOTE | 2022-07-21 23:19 | PC.NURSE ---
attempted to obtain urine specimen, patient urinated on floor instead of bsc, and would not use cup per instruction for clean catch. returned to bed.
[2022-07-21] MEDS: enoxaparin 40 mg/0.4 mL Syringe SUBCUT (23:32)
--- NOTE | 2022-07-21 23:51 | PC.NURSE ---
attempted to call patient report, icu states that nurse to receive patient has not arrived for shift yet, and they will call back.
[2022-07-22] VITALS (133 sets, daily range): BP systolic 131–182; BP diastolic 81–120; PULSE 59–90; RESP 9–28; TEMP 36.4–36.8; O2SAT 80–98
[2022-07-22 00:02] LABS: Troponin 5 2HR 22.97 ng/L (0-10); Troponin 5 2HR Delta -2.03 ABS# (0-10)
--- NOTE | 2022-07-22 00:16 | PC.NURSE ---
report called to Sulma N[facility], patient accepted to ICU 3.
--- NOTE | 2022-07-22 00:30 | PC.NURSE ---
patient able to provide clear yellow urine sample at this time, ekg also performed before taking to floor.
[2022-07-22 00:41] LABS: HCG Qualitative Urine. Negative (Negative)
--- NOTE | 2022-07-22 00:48 | PC.NURSE ---
patient transferred to ICU 3, primary nurse seth notified of urine collection and ekg done.
[2022-07-22 00:56] LABS: Amphetamines Screen Urine Positive (Negative); Barbiturates Screen Urine Negative (Negative); Benzodiazepines Screen Urine Negative (Negative); Cocaine Screen Urine Negative (Negative); Opiate Screen Urine Negative (Negative); PCP Screen Urine Negative (Negative); THC Screen Urine Positive (Negative)
[2022-07-22 01:00] LABS: Add Urine Microscopic? YES; Bilirubin Urine Negative (Negative); Blood Urine Large (Negative); Glucose Urine UA Negative (Normal); Ketones Urine Negative (Negative); Leukocyte Esterase Urine Negative (Negative); Nitrate Urine Negative; Protein Urine 1+ (Negative); Urine Appearance Turbid (CLEAR); Urine Color Yellow (Yellow); Urobilinogen Urine 0.2 mg/dL (Negative); pH Urine 7.5 (5-7)
[2022-07-22 01:07] LABS: Add Urine Culture? No; Amorphous Sediment Urine 1+ /hpf; Bacteria Urine TRACE /hpf; Mucus Urine TRACE /hpf; RBC Urine 0-4 /hpf (0-2); Squamous Epithelial Cell Urine 0-4 /hpf (0-5); WBC Urine 0-4 /hpf (0-5)
--- NOTE | 2022-07-22 02:40 | ECG_ITS ---
[facility] Test Date: 2022-07-22 Pat Name: Susie Fitzgerald Department: Room: [facility]03 Gender: Female Home Based Assistant: : 1980 Requested By: Shahbaz Hubbard Order Number: [id number] Adolfo MD: Chavez Fu M.D. Measurements Intervals [place] Rate: 77 P: 52 LA: 163 QRS: -3 QRSD: 105 T: 125 QT: 413 QTc: 470 Interpretive Statements SINUS RHYTHM ST DEVIATION AND MODERATE T-WAVE ABNORMALITY, CONSIDER LATERAL ISCHEMIA [-0.1+ mV T-WAVE IN I/aVL/V5/V6] Compared to ECG 07/22/2022 00:30:01 T-wave abnormality now present Possible ischemia now present Left ventricular hypertrophy no longer present ST (T wave) deviation no longer present Electronically Signed On 07-23-2022 22:07:55 CDT by Chavez Fu M.D. [id number]
[2022-07-22 03:57] LABS: Basophils # 0.1 10^3/uL (0.0-0.1); Basophils % 0.7 %; Eosinophils # 0.2 10^3/uL (0.0-0.8); Hematocrit 45.9 % (37.0-47.0); Hemoglobin 13.9 g/dL (11.5-15.3); Lymphocytes # 2.5 10^3/uL (0.8-4.8); Lymphocytes % 16.1 %; Mean Corpuscular HGB Conc 30.3 g/dL (30.0-36.0); Mean Corpuscular Volume 82.7 fl (81-99); Mean Platelet Volume 10.6 fL (7.4-10.4); Monocytes # 0.8 10^3/uL (0.2-0.9); Monocytes % 4.8 %; Neutrophils # 11.98 10^3/uL (1.8-7.7); Neutrophils % 76.9 %; Nucleated Red Blood Cells % 0 %; Platelet Count 395 10^3/cmm (130-400); Red Blood Count 5.55 10^6/uL (4.1-5.3); Red Cell Distribution Width 16.1 % (12.1-15.1); White Blood Count 15.6 10^3/uL (4.0-10.0)
[2022-07-22 04:13] LABS: Troponin 5 6HR 25.09 ng/L (0-10); Troponin 5 6HR Delta 0.09 ng/L (0-12)
[2022-07-22 04:18] LABS: Alanine Aminotransferase 13 U/L (0-33); Albumin Level 3.4 g/dL (3.5-5.2); Alkaline Phosphatase 76 U/L (35-105); Aspartate Amino Transferase 12 U/L (0-32); Blood Urea Nitrogen 8 mg/dL (6-20); Calcium 8.7 mg/dL (8.5-10.5); Carbon Dioxide 26 mmol/L (22-29); Chloride 99 mmol/L (98-107); Chol HDL Ratio 5.61 mg/dL (0.0-4.40); Cholesterol 185 mg/dL (0-200); Globulin 3.1 g/dL (1.3-4.6); Glomerular Filtration Rate 45.4 mL/min (90-130); Glucose 105 mg/dL (65-115); HDL Cholesterol 33 mg/dL (60-100); LDL Cholesterol Calculated 123 mg/dL (50-129); LDL HDL Ratio 3.73 RATIO (0.00-3.22); Osmolality Calculated 281 mOsm/kg (285-295); Sodium 136 mmol/L (136-145); Total Bilirubin 0.3 mg/dL (0.15-1.2); Total Protein 6.5 g/dL (6.6-8.7); Triglycerides 143 mg/dL (0-150)
[2022-07-22 04:29] LABS: Estmated Average Glucose 123; Hemoglobin A1C 5.9 % (4.0-6.0)
[2022-07-22] MEDS: labetalol 5 mg/mL SDV 20mL 10 MG IVP (05:33)
[2022-07-22] MEDS: amlodipine 10 mg Tablet PO (08:41)
[2022-07-22] MEDS: famotidine 20 mg Tablet PO ×2 (08:41→19:18)
[2022-07-22] MEDS: metoprolol succinate ER (24 HR) 25 mg Tablet PO (08:41)
[2022-07-22] MEDS: hyDRALAzine 25 mg Tablet PO ×3 (10:47→21:43)
[2022-07-22] MEDS: ipratropium-albuterol 3 mL Neb INHALATION (11:08)
--- NOTE | 2022-07-22 12:29 | PC.NURSE ---
Transferred patient to [facility] room 251 bed 2. Report given to nurse Mack. Belonging sent with patient included a back pack of clothing, a cell phone, cigarettes, and a bonsai culturist.
--- NOTE | 2022-07-22 13:53 | PM.PN ---
Subjective Subjective: Seen this AM. No acute events overnight. Patient struck screen positive for amphetamines. She says she does not take any medications at home. Does not follow with a doctor outpatient, is not on any medications at home. She says she used to be but just stopped taking them. She only come to the ER when she thinks her blood pressure is out of control Vitals/I&O/Wt Last Vital Signs Temp 97.5 F L 07/22/22 12:39 Pulse 70 07/22/22 12:39 Resp 16 07/22/22 12:39 BP 157/86 07/22/22 12:39 Pulse Ox 95 07/22/22 12:39 O2 Del Method 07/22/22 12:39 07/21/22 07/22/22 07/22/22 22:59 06:59 14:59 Intake Total 56.667 / 56.667 250 / 306.667 200 / 200 Balance 56.667 / 56.667 250 / 306.667 200 / 200 Weight last 48 hrs Weight 53.07 kg Physical Exam Narrative: General: Alert oriented x3, patient seen in bed HEENT: Normocephalic, atraumatic, EOMI, breathing normal Cardio: Regular rate rhythm, normal S1-S2, Respiratory: Diminished bilateral air entry diffusely, no wheezes or ronchi GI: Abdomen soft, nontender, nondistended, bowel sounds + Behavior: Appropriate and cooperative Extremities: no edema, no cyanosis Data : 07/22/22 02:15 07/22/22 02:15 A&P Assessment and plan (1) Hypertensive emergency: (2) CVA (cerebral vascular accident): (3) HTN (hypertension): (4) Elevated troponin: Plan 41 year old female with past medical history of hypertension CVA, was brought in with chief complaint of, headache , shortness of breath chest pain, nausea vomiting tingling numbness. Assessment: Hypertensive emergency History of CVA Hypertension Methamphetamine Abuse Noncompliant Plan: Patient was started on nicardipine drip in the ER currently blood pressure has dropped significantly below the goal, nicardipine drip has been stopped. Continue aspirin, metoprolol Continue on hydralazine 25 3 times daily Order DuoNeb x1 now DuoNeb every 4 hours as needed albuterol and spriva at discharge sleep study as outpatient CODE STATUS: Full code DVT prophylaxis: On Lovenox Attestations Medical Necessity Statement*: Patient is to be in hospital for management of hypertensive emergency.Anticipated length of stay greater than 2 midnights. Time Spent in Patient Care: Greater than 35 minutes (>than 50% of time spent in counselling and/or direct pt care on unit). Coding Level of Care Code Acute Automatic Print Developer for g Fwd Diagnoses Hypertensive emergency I16.1 CVA (cerebral vascular accident) I63.9 HTN (hypertension) I10 Elevated troponin R77.8
[2022-07-22 16:00] LABS: Creatine Phosphokinase 88 U/L (26-192)
--- NOTE | 2022-07-22 17:33 | P.DS_ITS ---
Discharge Providers Date of Admission: 07/21/22 22:13 Date of Discharge: July 22, 2022 Attending Provider at Admission: Alhaji Gamboa MD Attending Provider at Discharge: Adelaide Gordillo MD Diagnoses at Discharge Discharge Diagnosis (1) Hypertensive emergency: Status: Acute (2) CVA (cerebral vascular accident): Status: Acute (3) HTN (hypertension): Status: Acute (4) Elevated troponin: Status: Acute Reason for Visit Reason for Visit: HIGH BLOOD PRESSURE/N/V Brief History: As per Dr. Gamboa Susie Fitzgerald is a 41 year old female with past medical history of hypertension CVA, was brought in with chief complaint of, headache , shortness of breath chest pain, nausea vomiting tingling numbness, when EMS arrived at scene she was found to be extremely hypertensive? her B/P was 256/160 , she was given labetalol as well as nitroglycerin in route, in ER she was started on labetalol drip. When I interacted with the patient her symptoms had significantly improved , She had no neurological deficit. Pertinent imaging studies done in the ER CT head without contrast: No acute intracranial pathology CTA head and neck: No flow-limiting stenosis no dissection EKG: Sinus rhythm with LVH X-ray chest:?No acute findings. Pertinent labs: WBC 15.6, H&H 13/42 , PLT : 324 , sodium 135 , potassium 3.7 , BUN serum creatinine: 9/1.4 , Baseline : Troponin 25: proBNP: 1127 Hospital Course Hospital Course Patient came in with hypertensive emergency. She was positive for methamphetamines. Does not follow-up with a doctor outpatient and is not on any medications at home. He says she used to take them but stopped taking them as she thinks she did not need them. She says usually her blood pressure does not give her symptoms when she feels it is out of control she comes to the ER. She also says that when she lays flat she feels that she is suffocating. She is unsure if she has sleep apnea. BNP was 1100 during hospital stay. Patient was given Lasix during hospital stay. Echo was ordered. Patient was placed on aspirin, metoprolol, hydralazine 25 3 times daily. Also albuterol as per your were added at discharge. She was given DuoNeb during hospital stay. Discharge Data Studies Completed and Pending Completed Studies During Hospitalization Category Date Time Status CT angio head neck [CT angio headneck* [id number]] Cat Scan 07/21/22 20:[address] head wo con* [id number] Stat Cat Scan 07/21/22 20:31 Completed XR chest 1V portable [id number] Stat Exams 07/21/22 20:36 Completed Pending at discharge Category Date Time Status Complete Blood Count w/Auto AM LABS Lab 07/23/22 04:00 Ordered Complete Blood Count w/Auto AM LABS Lab 07/24/22 04:00 Ordered Comprehensive Metabolic Panel AM LABS Lab 07/23/22 04:00 Ordered Comprehensive Metabolic Panel AM LABS Lab 07/24/22 04:00 Ordered Radiology Impressions Head CT 07/21/22 20:31 IMPRESSION: 1. Bilateral chronic appearing lacunar infarcts increased from 10/11/2020. 2. Chronic appearing pontine lacunar infarct new from 10/11/2020. 3. No acute intracranial hemorrhage. ASSESSMENT: ASPECTS ([place] Stroke Program Early CT Score) is 10. Head/Neck CTA 07/21/22 20:31 IMPRESSION: No large vessel stenosis or occlusion. IMPRESSION: Mild stenosis proximal right and left internal carotid artery in the neck. No significant stenosis or occlusion. REFERENCES: NASCET CRITERIA. The degree of stenosis in the cervical segment of the internal carotid artery is based on NASCET criteria. Normal is no stenosis. Mild is less than 50% stenosis. Moderate is 50-69% stenosis. Severe is 70% to 99% stenosis. Total occlusion is no detectable patent lumen. Chest X-Ray 07/21/22 20:36 IMPRESSION: No acute findings. Laboratory Results WBC 15.6 10^3/uL (4.0-10.0) H 07/22/22 02:15 RBC 5.55 10^6/uL (4.1-5.3) H 07/22/22 02:15 Hgb 13.9 g/dL (11.5-15.3) 07/22/22 02:15 Hct 45.9 % (37.0-47.0) 07/22/22 02:15 MCV 82.7 fl (81-99) 07/22/22 02:15 MCH 25.0 pg (28.0-34.0) L 07/22/22 02:15 MCHC 30.3 g/dL (30.0-36.0) 07/22/22 02:15 RDW 16.1 % (12.1-15.1) H 07/22/22 02:15 Plt Count 395 10^3/cmm (130-400) 07/22/22 02:15 MPV 10.6 fL (7.4-10.4) H 07/22/22 02:15 Neut % (Auto) 76.9 % 07/22/22 02:15 Lymph % (Auto) 16.1 % 07/22/22 02:15 [place] % (Auto) 4.8 % 07/22/22 02:15 Eos % (Auto) 1.0 % 07/22/22 02:15 Baso % (Auto) 0.7 % 07/22/22 02:15 Neut # (Auto) 11.98 10^3/uL (1.8-7.7) H 07/22/22 02:15 Lymph # (Auto) 2.5 10^3/uL (0.8-4.8) 07/22/22 02:15 [place] # (Auto) 0.8 10^3/uL (0.2-0.9) 07/22/22 02:15 Eos # (Auto) 0.2 10^3/uL (0.0-0.8) 07/22/22 02:15 Baso # (Auto) 0.1 10^3/uL (0.0-0.1) 07/22/22 02:15 Nucleated RBC % (auto) 0 % 07/22/22 02:15 Nucleated RBCs # 0.0 /100WBC 07/22/22 02:15 PT 13.70 SECONDS (12.1-14.9) 07/21/22 20:45 INR 1.02 (0.8-1.2) 07/21/22 20:45 APTT 30.2 SECONDS (23.9-36.7) 07/21/22 20:45 Sodium 136 mmol/L (136-145) 07/22/22 02:15 Potassium 4.0 mmol/L (3.5-5.1) 07/22/22 02:15 Chloride 99 mmol/L (98-107) 07/22/22 02:15 Carbon Dioxide 26 mmol/L (22-29) 07/22/22 02:15 Anion Gap 15.0 (5-19) 07/22/22 02:15 BUN 8 mg/dL (6-20) 07/22/22 02:15 Creatinine 1.3 mg/dL (0.5-0.9) H 07/22/22 02:15 GFR Calculation 45.4 mL/min (90-130) L 07/22/22 02:15 Glucose 105 mg/dL (65-115) 07/22/22 02:15 POC Glucose 117 mg/dL (70-110) H 07/21/22 21:01 Estimat Average Glucose 123 07/22/22 02:15 Hemoglobin A1c 5.9 % (4.0-6.0) 07/22/22 02:15 Calculated Osmolality 281 mOsm/kg (285-295) L 07/22/22 02:15 Calcium 8.7 mg/dL (8.5-10.5) 07/22/22 02:15 Total Bilirubin 0.3 mg/dL (0.15-1.2) 07/22/22 02:15 AST 12 U/L (0-32) 07/22/22 02:15 ALT 13 U/L (0-33) 07/22/22 02:15 Alkaline Phosphatase 76 U/L (35-105) 07/22/22 02:15 Creatine Kinase 88 U/L (26-192) 07/22/22 12:47 Troponin T Baseline 25 ng/L (0-10) H 07/21/22 20:45 Troponin T 120 Minute 22.97 ng/L (0-10) H 07/21/22 23:00 Delta Troponin T -2.03 ABS# (0-10) L 07/21/22 23:00 Troponin T Hi Sens 6Hr 25.09 ng/L (0-10) H 07/22/22 02:15 Troponin T Hi Sens 6Hr Delta 0.09 ng/L (0-12) 07/22/22 02:15 C-Reactive Protein 11.3 mg/L (0.0-4.9) H 07/21/22 20:45 NT-Pro-B Natriuret Pep 1127 pg/mL (0-125) H 07/21/22 20:45 Total Protein 6.5 g/dL (6.6-8.7) L 07/22/22 02:15 Albumin 3.4 g/dL (3.5-5.2) L 07/22/22 02:15 Globulin 3.1 g/dL (1.3-4.6) 07/22/22 02:15 Triglycerides 143 mg/dL (0-150) 07/22/22 02:15 Cholesterol 185 mg/dL (0-200) 07/22/22 02:15 LDL Cholesterol, Calc 123 mg/dL (50-129) 07/22/22 02:15 HDL Cholesterol 33 mg/dL (60-100) L 07/22/22 02:15 LDL/HDL Ratio 3.73 RATIO (0.00-3.22) H 07/22/22 02:15 Cholesterol/HDL Ratio 5.61 mg/dL (0.0-4.40) H 07/22/22 02:15 HCG, Qual Negative (Negative) 07/22/22 00:30 Urine Color Yellow (Yellow) 07/22/22 00:30 Urine Appearance Turbid (CLEAR) A 07/22/22 00:30 Urine pH 7.5 (5-7) 07/22/22 00:30 Ur Specific [place] 1.010 (1.005-1.030) 07/22/22 00:30 Urine Protein 1+ (Negative) A 07/22/22 00:30 Urine Glucose (UA) Negative (Normal) 07/22/22 00:30 Urine Ketones Negative (Negative) 07/22/22 00:30 Urine Blood Large (Negative) A 07/22/22 00:30 Urine Nitrate Negative 07/22/22 00:30 Urine Bilirubin Negative (Negative) 07/22/22 00:30 Urine Urobilinogen 0.2 mg/dL (Negative) 07/22/22 00:30 Ur Leukocyte Esterase Negative (Negative) 07/22/22 00:30 Urine RBC 0-4 /hpf (0-2) H 07/22/22 00:30 Urine WBC 0-4 /hpf (0-5) H 07/22/22 00:30 Ur Squamous Epith Cells 0-4 /hpf (0-5) H 07/22/22 00:30 Amorphous Sediment 1+ /hpf 07/22/22 00:30 Urine Bacteria Trace /hpf (NONE) 07/22/22 00:30 Urine Mucus Trace /hpf 07/22/22 00:30 Urine Opiates Screen Negative ng/mL (Negative) 07/22/22 00:30 Ur Barbiturates Screen Negative ng/mL (Negative) 07/22/22 00:30 Ur Phencyclidine Scrn Negative ng/mL (Negative) 07/22/22 00:30 Ur Amphetamines Screen Positive ng/mL (Negative) H 07/22/22 00:30 U Benzodiazepines Scrn Negative ng/mL (Negative) 07/22/22 00:30 Urine Cocaine Screen Negative ng/mL (Negative) 07/22/22 00:30 U Marijuana (THC) Screen Positive ng/mL (Negative) H 07/22/22 00:30 Vitals Last Vital Signs Temp 97.9 F 07/22/22 16:00 Pulse 71 07/22/22 16:00 Resp 17 07/22/22 16:00 BP 138/88 07/22/22 16:00 Pulse Ox 97 07/22/22 16:00 O2 Del Method 07/22/22 16:00 Discharge Plan Discharge Patient Disposition: Home Condition: Stable Prescriptions: No Action famotidine 20 mg Tablet 20 mg PO BID Qty: 0 0RF metoprolol succinate 25 mg tablet extended release 24 hr 25 mg PO DAILY Qty: 30 0RF aspirin 81 mg Tablet,Delayed Release (Dr/Ec) 81 mg PO PRN Qty: 0 0RF Referrals: Trina Eastman FNP-C [Nurse Practitioner] - 4-7 days (Patient will need a new PCP appointment to establish primary care @ [place]) Patient Instructions: Opioid Safety Coding Level of Care Code Acute [facility] note Diagnoses Hypertensive emergency I16.1 CVA (cerebral vascular accident) I63.9 HTN (hypertension) I10 Elevated troponin R77.8
--- NOTE | 2022-07-22 17:45 | USCV_ITS ---
Fitzgerald Susie Age: 41 Gender: F : 1980 Exam Date: 07/22/2022 17:57 Ordering Phys: Adelaide Gordillo MD Technologist: Nicole Trujillo Exam Location: [facility] – [place] Indication: Orthopnea BP: 138 / 88 HR: 71 Rhythm: Sinus Technical Quality: Adequate MEASUREMENTS (Male / Female) Normal Values 2D ECHO LV Diastolic Diameter PLAX 4.1 cm 4.2 - 5.9 / 3.9 - 5.3 cm LV Systolic Diameter PLAX 3.5 cm LV Chamber Size 3.3 cm IVS Diastolic Thickness 1.6 cm 0.6 - 1.0 / 0.6 - 0.9 cm IVS Systolic Thickness 1.7 cm LVPW Diastolic Thickness 1.5 cm 0.6 - 1.0 / 0.6 - 0.9 cm LVPW Systolic Thickness 2.1 cm RV Chamber Size 2.2 cm LVOT Diameter 2.0 cm LV Ejection Fraction 2D Teich 31.3 % LV Ejection Fraction MOD 2C 38.8 % LV Ejection Fraction 2C AL 40.5 % LA Diameter 3.2 cm LA Width 3.1 cm LA Height 4.2 cm RA Width 3.9 cm RA Height 4.5 cm Aorta at Sinotubular Diameter 2.9 cm M-MODE Aortic Annulus Diameter 4.2 cm LA Ao Ratio MM 0.9 MV E Point Septal Separation 0.4 cm DOPPLER AV Peak Velocity 146.0 cm/s LVOT Peak Velocity 101.0 cm/s AV Area Cont Eq vti 2.5 cm squared AV Area Cont Eq pk 2.3 cm squared MV Area PHT 4.6 cm squared Mitral E to A Ratio 1.5 MV E' Velocity 52.0 cm/s Mitral E to MV E' Ratio 14.7 Mitral E to LV E' Lateral Ratio 15.6 Mitral E to LV E' Septal Ratio 13.8 TR Peak Velocity 116.4 cm/s TR Peak Gradient 5.4 mmHg TR Mean Velocity 75.8 cm/s TR Mean Gradient 2.6 mmHg TR Velocity Time Integral 27.2 cm TV Peak E Velocity 53.0 cm/s Right Atrial Pressure 3.0 mmHg Pulmonary Artery Systolic Pressu 8.4 mmHg RV Acceleration Time 0.1 s RV Ejection Time 0.3 s RV AcT/ET 0.3 FINDINGS Left Ventricle Left ventricle is normal in size. LV systolic function is normal with EF of 50-55 %. No regional wall motion abnormalities are seen. Mild left ventricular hypertrophy is seen. Right Ventricle Normal in size Right Atrium Normal in size Left Atrium Normal in size Mitral Valve Mitral valve is structurally normal. No significant regurgitation or stenosis. Aortic Valve Aortic valve is structurally normal. Mild aortic regurgitation. Tricuspid Valve Trace tricuspid regurgitation. Insufficient TR jet to calculate RVSP. Pulmonic Valve Not well-visualized Pericardium Normal Aorta Normal in size IVC CONCLUSIONS LV systolic function is normal with EF of 50-55%. Mild left ventricular hypertrophy Mild aortic regurgitation Trace tricuspid regurgitation Chavez Fu MD (Electronically Signed) Final Date: 22 July 2022 22:07 S
--- NOTE | 2022-07-22 18:40 | PC.NURSE ---
patient found outside main entrance smoking a cigarette, directed patient to return to hospital room. Educated patient that patients are to remain on the unit, and that there is no smoking on hospital premises. Paula DE LA PAZ took patients pack of cigarettes and light industrial supervisor and secured them in patients chart.
[2022-07-22] MEDS: FUROsemide 10 mg/mL SDV 2mL 20 MG IVP (19:23)
[2022-07-22] MEDS: enoxaparin 40 mg/0.4 mL Syringe SUBCUT (21:43)
[2022-07-22] MEDS: temazepam 15 mg Capsule PO (21:43)
[2022-07-23] VITALS (87 sets, daily range): BP systolic 135–213; BP diastolic 84–136; PULSE 70–93; RESP 7–32; TEMP 36.5–36.8; O2SAT 92–98
[2022-07-23] MEDS: labetalol 5 mg/mL SDV 20mL 10 MG IVP ×4 (03:28→19:32)
[2022-07-23 05:24] LABS: Basophils # 0.1 10^3/uL (0.0-0.1); Basophils % 1.1 %; Eosinophils # 0.3 10^3/uL (0.0-0.8); Eosinophils % 3.3 %; Hematocrit 44.8 % (37.0-47.0); Lymphocytes # 2.4 10^3/uL (0.8-4.8); Lymphocytes % 23.4 %; Mean Corpuscular HGB Conc 31.3 g/dL (30.0-36.0); Mean Corpuscular Hemoglobin 25.1 pg (28.0-34.0); Mean Corpuscular Volume 80.3 fl (81-99); Mean Platelet Volume 10.6 fL (7.4-10.4); Monocytes # 0.7 10^3/uL (0.2-0.9); Monocytes % 6.9 %; Neutrophils # 6.58 10^3/uL (1.8-7.7); Neutrophils % 64.9 %; Nucleated Red Blood Cells % 0 %; Platelet Count 368 10^3/cmm (130-400); Red Blood Count 5.58 10^6/uL (4.1-5.3); White Blood Count 10.2 10^3/uL (4.0-10.0)
[2022-07-23 06:04] LABS: Alanine Aminotransferase 13 U/L (0-33); Albumin Level 3.4 g/dL (3.5-5.2); Alkaline Phosphatase 78 U/L (35-105); Anion Gap 12.5 (5-19); Aspartate Amino Transferase 14 U/L (0-32); Blood Urea Nitrogen 11 mg/dL (6-20); Calcium 8.8 mg/dL (8.5-10.5); Carbon Dioxide 29 mmol/L (22-29); Chloride 98 mmol/L (98-107); Globulin 3.2 g/dL (1.3-4.6); Glomerular Filtration Rate 45.4 mL/min (90-130); Glucose 119 mg/dL (65-115); Osmolality Calculated 283 mOsm/kg (285-295); Potassium 3.5 mmol/L (3.5-5.1); Sodium 136 mmol/L (136-145); Total Bilirubin 0.3 mg/dL (0.15-1.2); Total Protein 6.6 g/dL (6.6-8.7)
[2022-07-23] MEDS: hyDRALAzine 25 mg Tablet PO (08:25)
[2022-07-23] MEDS: metoprolol succinate ER (24 HR) 25 mg Tablet PO (08:25)
[2022-07-23] MEDS: famotidine 20 mg Tablet PO ×2 (08:25→18:09)
[2022-07-23] MEDS: amlodipine 10 mg Tablet PO (08:25)
--- NOTE | 2022-07-23 09:03 | P.PN_ITS ---
Subjective Subjective: seen this AM. Reported by nursing staff that patient left floor yesterday and hid behind a post when nursing saw her. pt went outside for a smoke . SHe was escorted back to her room thereafter. pt positive for meth at admission pt stated her friend was using meth in the room she was in, she is unsure how she got it too she says she will check on her ride and possibly sign out ama but not sure yet i did tell pt that bp is very high and its not safe to go home in this current condition Vitals/I&O/Wt Last Vital Signs Temp 98.3 F 07/23/22 07:56 Pulse 79 07/23/22 07:56 Resp 16 07/23/22 07:56 BP 188/104 07/23/22 07:56 Pulse Ox 97 07/23/22 07:56 O2 Del Method 07/23/22 07:56 07/22/22 07/23/22 07/23/22 22:59 06:59 14:59 Intake Total 480 / 1100 Balance 480 / 1100 Weight last 48 hrs Weight 53.07 kg Physical Exam Narrative: General: Alert oriented x3, patient seen in bed HEENT: Normocephalic, atraumatic, EOMI, breathing normal Cardio: Regular rate rhythm, normal S1-S2, Respiratory: Diminished bilateral air entry diffusely, no wheezes or ronchi GI: Abdomen soft, nontender, nondistended, bowel sounds + Behavior: Appropriate and cooperative Extremities: no edema, no cyanosis Data : 07/23/22 04:15 07/23/22 04:15 A&P Assessment and plan (1) Hypertensive emergency: (2) CVA (cerebral vascular accident): (3) HTN (hypertension): (4) Elevated troponin: Plan 41 year old female with past medical history of hypertension CVA, was brought in with chief complaint of, headache , shortness of breath chest pain, nausea vomiting tingling numbness. Assessment: Hypertensive emergency History of CVA Hypertension Methamphetamine Abuse Noncompliant Plan: Patient was started on nicardipine drip in the ER currently blood pressure has dropped significantly below the goal, nicardipine drip has been stopped first day of admit Continue aspirin, metoprolol Continue on hydralazine 50 3 times daily Order DuoNeb x1 now DuoNeb every 4 hours as needed albuterol and spriva at discharge sleep study as outpatient pressure very high since this AM. was given morning meds early. hydralazine 10 mg iv x1 given this am as well will move to c[facility] and place on nicardipine drip again. pt quite restless will order xanax 0.25 x1 CODE STATUS: Full code DVT prophylaxis: On Lovenox Attestations Medical Necessity Statement*: Patient is to be in hospital for management of hypertensive emergency.Anticipated length of stay greater than 2 midnights. Time Spent in Patient Care: Greater than 35 minutes (>than 50% of time spent in counselling and/or direct pt care on unit) . Coding Level of Care Code Acute [employer] Up Helper for Noris Najerad Diagnoses Hypertensive emergency I16.1 CVA (cerebral vascular accident) I63.9 HTN (hypertension) I10 Elevated troponin R77.8
[2022-07-23] MEDS: hyDRALAzine 20 mg/mL INJ 1 mL 10 MG IVP (09:05)
--- NOTE | 2022-07-23 09:58 | PC.NURSE ---
Dr Gordillo notified of high BP as documented in chart.
--- NOTE | 2022-07-23 11:53 | PC.NURSE ---
received tel order from to hold Nicardipine drip for now. Received tel order okay to give oral xanax 0.25 mg once given.
[2022-07-23] MEDS: ALPRAZolam 0.5 mg Tablet 0.25 MG PO (13:36)
[2022-07-23] MEDS: hyDRALAzine 50 mg Tablet PO ×2 (13:58→21:00)
[2022-07-23] MEDS: temazepam 15 mg Capsule PO (21:00)
[2022-07-23] MEDS: enoxaparin 40 mg/0.4 mL Syringe SUBCUT (21:00)
[2022-07-24] VITALS (63 sets, daily range): BP systolic 161–234; BP diastolic 107–143; PULSE 68–91; RESP 4–24; TEMP 36.5–36.9; O2SAT 94–97
[2022-07-24] MEDS: labetalol 5 mg/mL SDV 20mL 10 MG IVP ×2 (02:30→08:10)
[2022-07-24 04:16] LABS: Basophils # 0.1 10^3/uL (0.0-0.1); Basophils % 1.1 %; Eosinophils # 0.4 10^3/uL (0.0-0.8); Eosinophils % 3.2 %; Hematocrit 51.9 % (37.0-47.0); Lymphocytes # 2.3 10^3/uL (0.8-4.8); Lymphocytes % 18.6 %; Mean Corpuscular HGB Conc 30.8 g/dL (30.0-36.0); Mean Corpuscular Hemoglobin 24.8 pg (28.0-34.0); Mean Corpuscular Volume 80.6 fl (81-99); Mean Platelet Volume 10.4 fL (7.4-10.4); Monocytes # 0.8 10^3/uL (0.2-0.9); Monocytes % 6.8 %; Neutrophils # 8.56 10^3/uL (1.8-7.7); Neutrophils % 69.9 %; Nucleated Red Blood Cells % 0 %; Platelet Count 408 10^3/cmm (130-400); Red Blood Count 6.44 10^6/uL (4.1-5.3); Red Cell Distribution Width 16.5 % (12.1-15.1); White Blood Count 12.3 10^3/uL (4.0-10.0)
[2022-07-24 04:35] LABS: Alanine Aminotransferase 13 U/L (0-33); Albumin Level 3.6 g/dL (3.5-5.2); Alkaline Phosphatase 85 U/L (35-105); Anion Gap 16.5 (5-19); Aspartate Amino Transferase 14 U/L (0-32); Blood Urea Nitrogen 12 mg/dL (6-20); Calcium 9.5 mg/dL (8.5-10.5); Carbon Dioxide 23 mmol/L (22-29); Chloride 98 mmol/L (98-107); Globulin 3.7 g/dL (1.3-4.6); Glomerular Filtration Rate 49.8 mL/min (90-130); Glucose 107 mg/dL (65-115); Osmolality Calculated 278 mOsm/kg (285-295); Potassium 3.5 mmol/L (3.5-5.1); Sodium 134 mmol/L (136-145); Total Bilirubin 0.5 mg/dL (0.15-1.2); Total Protein 7.3 g/dL (6.6-8.7)
--- NOTE | 2022-07-24 05:38 | PC.NURSE ---
Spoke to regarding patients elevated BP, most recent 191/117. Patient is not due for IV labetolol yet. Patient has nicardipine order but drip was never started as had wanted to increase PO meds first. said to give 9am BP meds early at this time.
[2022-07-24] MEDS: metoprolol succinate ER (24 HR) 25 mg Tablet PO (05:46)
[2022-07-24] MEDS: amlodipine 10 mg Tablet PO (05:46)
[2022-07-24] MEDS: hyDRALAzine 50 mg Tablet PO (05:47)
[2022-07-24] MEDS: famotidine 20 mg Tablet PO (08:10)
[2022-07-24] MEDS: carvedilol 12.5 mg Tablet PO (10:17)
[2022-07-24] MEDS: aspirin 81 mg EC Tablet PO (10:17)
--- NOTE | 2022-07-24 10:36 | PC.NURSE ---
pt decided that she wanted to leave ama. Dr. Fritz made aware. Pt uses [facility]. AMA paper signed, pt very pleasant about it, just ready to leave. 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 pt left ambulatory to the ed entrance where her ride was picking her up
[2022-07-24 11:03] LABS: Iron 52 ug/dL (37-145)
[2022-07-24 11:14] LABS: Thyroid Stimulating Hormone 2.76 uIU/mL (0.27-4.20)
[2022-07-24 12:01] LABS: Total Iron Binding Capacity 288 mcg/dl; Unsaturated Iron Binding 236 ug/dL (112-347)
--- NOTE | 2022-07-24 12:14 | PM.DCS ---
Discharge Providers Date of Admission: 07/21/22 22:13 Date of Discharge: July 24, 2022 Attending Provider at Admission: Alhaji Gamboa MD Attending Provider at Discharge: Yosef Fritz MD Diagnoses at Discharge Discharge Diagnosis (1) Hypertensive emergency: Status: Acute (2) CVA (cerebral vascular accident): Status: Acute (3) HTN (hypertension): Status: Acute (4) Elevated troponin: Status: Acute Reason for Visit Reason for Visit: HIGH BLOOD PRESSURE/N/V Brief History: History as per HPI: Susie Fitzgerald is a 41 year old female with past medical history of hypertension CVA, was brought in with chief complaint of, headache , shortness of breath chest pain, nausea vomiting tingling numbness, when EMS arrived at scene she was found to be extremely hypertensive? her B/P was 256/160 , she was given labetalol as well as nitroglycerin in route, in ER she was started on labetalol drip. Hospital Course Hospital Course Patient admitted to hospital further evaluation and management of hypertensive emergency. On admission U tox is also positive for methamphetamines. On further evaluation patient complained of shortness of breath at the location on lying down occasionally. As per further evaluation patient was supposed to be on antihypertensives and outpatient but stopped few years ago as she thought it was not helping her. She does not follow-up with a PCP. During hospitalization and so she was started on labetalol drip which was later transitioned to oral antihypertensives. During hospitalization there were also events when she was found off the floor after which on coming back to the room she was found to have extremely elevated blood pressures consistent with hypertensive emergency. She was counseled in detail regarding cessation of smoking and recreational drugs. Patient was counseled in detail regarding continued hospitalization for further adjustment of antihypertensive and possibly Lexiscan stress test to rule out ischemia given her symptoms. Patient verbalized understanding but was not agreeable to stay even though she was explained about all the risk factors including , stroke or heart attack. Patient eventually left AMA on 07/24. Antihypertensives were sent over to her pharmacy. Patient was again counseled regarding smoking cessation, cessation of recreational drugs along with regular follow-up as an outpatient and to continue taking medications regularly. Physical Exam Narrative: General: Alert oriented x3, patient seen in bed HEENT: Normocephalic, atraumatic, EOMI, breathing normal Cardio: Regular rate rhythm, normal S1-S2, Respiratory: Diminished bilateral air entry diffusely, no wheezes or ronchi GI: Abdomen soft, nontender, nondistended, bowel sounds + Behavior: Appropriate and cooperative Extremities: no edema, no cyanosis Discharge Data Studies Completed and Pending Completed Studies During Hospitalization Category Date Time Status CT angio head neck [CT angio headneck* [id number]] Cat Scan 07/21/22 20:[address] head wo con* [id number] Stat Cat Scan 07/21/22 20:31 Completed XR chest 1V portable [id number] Stat Exams 07/21/22 20:36 Completed CV. echo complete* [id number] Routine Ultrasound 07/22/22 17:45 Completed Radiology Impressions Head CT 07/21/22 20:31 IMPRESSION: 1. Bilateral chronic appearing lacunar infarcts increased from 10/11/2020. 2. Chronic appearing pontine lacunar infarct new from 10/11/2020. 3. No acute intracranial hemorrhage. ASSESSMENT: ASPECTS ([place] Stroke Program Early CT Score) is 10. Head/Neck CTA 07/21/22 20:31 IMPRESSION: No large vessel stenosis or occlusion. IMPRESSION: Mild stenosis proximal right and left internal carotid artery in the neck. No significant stenosis or occlusion. REFERENCES: NASCET CRITERIA. The degree of stenosis in the cervical segment of the internal carotid artery is based on NASCET criteria. Normal is no stenosis. Mild is less than 50% stenosis. Moderate is 50-69% stenosis. Severe is 70% to 99% stenosis. Total occlusion is no detectable patent lumen. Chest X-Ray 07/21/22 20:36 IMPRESSION: No acute findings. Echocardiogram CONCLUSIONS ?LV systolic function is normal with EF of 50-55%.? Mild left?ventricular hypertrophy ?Mild aortic regurgitation ?Trace tricuspid regurgitation ?Chavez Fu MD ?(Electronically Signed) ?Final Date:? ? ? 22 July 2022 ? 22:07 Laboratory Results WBC 12.3 10^3/uL (4.0-10.0) H 07/24/22 03:34 RBC 6.44 10^6/uL (4.1-5.3) H 07/24/22 03:34 Hgb 16.0 g/dL (11.5-15.3) H 07/24/22 03:34 Hct 51.9 % (37.0-47.0) H 07/24/22 03:34 MCV 80.6 fl (81-99) L 07/24/22 03:34 MCH 24.8 pg (28.0-34.0) L 07/24/22 03:34 MCHC 30.8 g/dL (30.0-36.0) 07/24/22 03:34 RDW 16.5 % (12.1-15.1) H 07/24/22 03:34 Plt Count 408 10^3/cmm (130-400) H 07/24/22 03:34 MPV 10.4 fL (7.4-10.4) 07/24/22 03:34 Neut % (Auto) 69.9 % 07/24/22 03:34 Lymph % (Auto) 18.6 % 07/24/22 03:34 [place] % (Auto) 6.8 % 07/24/22 03:34 Eos % (Auto) 3.2 % 07/24/22 03:34 Baso % (Auto) 1.1 % 07/24/22 03:34 Neut # (Auto) 8.56 10^3/uL (1.8-7.7) H 07/24/22 03:34 Lymph # (Auto) 2.3 10^3/uL (0.8-4.8) 07/24/22 03:34 [place] # (Auto) 0.8 10^3/uL (0.2-0.9) 07/24/22 03:34 Eos # (Auto) 0.4 10^3/uL (0.0-0.8) 07/24/22 03:34 Baso # (Auto) 0.1 10^3/uL (0.0-0.1) 07/24/22 03:34 Nucleated RBC % (auto) 0 % 07/24/22 03:34 Nucleated RBCs # 0.0 /100WBC 07/24/22 03:34 PT 13.70 SECONDS (12.1-14.9) 07/21/22 20:45 INR 1.02 (0.8-1.2) 07/21/22 20:45 APTT 30.2 SECONDS (23.9-36.7) 07/21/22 20:45 Sodium 134 mmol/L (136-145) L 07/24/22 03:34 Potassium 3.5 mmol/L (3.5-5.1) 07/24/22 03:34 Chloride 98 mmol/L (98-107) 07/24/22 03:34 Carbon Dioxide 23 mmol/L (22-29) 07/24/22 03:34 Anion Gap 16.5 (5-19) 07/24/22 03:34 BUN 12 mg/dL (6-20) 07/24/22 03:34 Creatinine 1.2 mg/dL (0.5-0.9) H 07/24/22 03:34 GFR Calculation 49.8 mL/min (90-130) L 07/24/22 03:34 Glucose 107 mg/dL (65-115) 07/24/22 03:34 POC Glucose 117 mg/dL (70-110) H 07/21/22 21:01 Estimat Average Glucose 123 07/22/22 02:15 Hemoglobin A1c 5.9 % (4.0-6.0) 07/22/22 02:15 Calculated Osmolality 278 mOsm/kg (285-295) L 07/24/22 03:34 Calcium 9.5 mg/dL (8.5-10.5) 07/24/22 03:34 Iron 52 ug/dL (37-145) 07/24/22 03:34 TIBC 288 mcg/dl 07/24/22 03:34 % Saturation 18.0 % (20-50) L 07/24/22 03:34 Unsat Iron Binding 236 ug/dL (112-347) 07/24/22 03:34 Total Bilirubin 0.5 mg/dL (0.15-1.2) 07/24/22 03:34 AST 14 U/L (0-32) 07/24/22 03:34 ALT 13 U/L (0-33) 07/24/22 03:34 Alkaline Phosphatase 85 U/L (35-105) 07/24/22 03:34 Creatine Kinase 88 U/L (26-192) 07/22/22 12:47 Troponin T Baseline 25 ng/L (0-10) H 07/21/22 20:45 Troponin T 120 Minute 22.97 ng/L (0-10) H 07/21/22 23:00 Delta Troponin T -2.03 ABS# (0-10) L 07/21/22 23:00 Troponin T Hi Sens 6Hr 25.09 ng/L (0-10) H 07/22/22 02:15 Troponin T Hi Sens 6Hr Delta 0.09 ng/L (0-12) 07/22/22 02:15 C-Reactive Protein 11.3 mg/L (0.0-4.9) H 07/21/22 20:45 NT-Pro-B Natriuret Pep 1127 pg/mL (0-125) H 07/21/22 20:45 Total Protein 7.3 g/dL (6.6-8.7) 07/24/22 03:34 Albumin 3.6 g/dL (3.5-5.2) 07/24/22 03:34 Globulin 3.7 g/dL (1.3-4.6) 07/24/22 03:34 Triglycerides 143 mg/dL (0-150) 07/22/22 02:15 Cholesterol 185 mg/dL (0-200) 07/22/22 02:15 LDL Cholesterol, Calc 123 mg/dL (50-129) 07/22/22 02:15 HDL Cholesterol 33 mg/dL (60-100) L 07/22/22 02:15 LDL/HDL Ratio 3.73 RATIO (0.00-3.22) H 07/22/22 02:15 Cholesterol/HDL Ratio 5.61 mg/dL (0.0-4.40) H 07/22/22 02:15 TSH 2.76 uIU/mL (0.27-4.20) 07/24/22 03:34 HCG, Qual Negative (Negative) 07/22/22 00:30 Urine Color Yellow (Yellow) 07/22/22 00:30 Urine Appearance Turbid (CLEAR) A 07/22/22 00:30 Urine pH 7.5 (5-7) 07/22/22 00:30 Ur Specific [place] 1.010 (1.005-1.030) 07/22/22 00:30 Urine Protein 1+ (Negative) A 07/22/22 00:30 Urine Glucose (UA) Negative (Normal) 07/22/22 00:30 Urine Ketones Negative (Negative) 07/22/22 00:30 Urine Blood Large (Negative) A 07/22/22 00:30 Urine Nitrate Negative 07/22/22 00:30 Urine Bilirubin Negative (Negative) 07/22/22 00:30 Urine Urobilinogen 0.2 mg/dL (Negative) 07/22/22 00:30 Ur Leukocyte Esterase Negative (Negative) 07/22/22 00:30 Urine RBC 0-4 /hpf (0-2) H 07/22/22 00:30 Urine WBC 0-4 /hpf (0-5) H 07/22/22 00:30 Ur Squamous Epith Cells 0-4 /hpf (0-5) H 07/22/22 00:30 Amorphous Sediment 1+ /hpf 07/22/22 00:30 Urine Bacteria Trace /hpf (NONE) 07/22/22 00:30 Urine Mucus Trace /hpf 07/22/22 00:30 Urine Opiates Screen Negative ng/mL (Negative) 07/22/22 00:30 Ur Barbiturates Screen Negative ng/mL (Negative) 07/22/22 00:30 Ur Phencyclidine Scrn Negative ng/mL (Negative) 07/22/22 00:30 Ur Amphetamines Screen Positive ng/mL (Negative) H 07/22/22 00:30 U Benzodiazepines Scrn Negative ng/mL (Negative) 07/22/22 00:30 Urine Cocaine Screen Negative ng/mL (Negative) 07/22/22 00:30 U Marijuana (THC) Screen Positive ng/mL (Negative) H 07/22/22 00:30 Vitals Last Vital Signs Temp 98.3 F 07/24/22 07:53 Pulse 75 07/24/22 09:00 Resp 16 07/24/22 08:00 BP 197/108 07/24/22 09:00 Pulse Ox 97 07/24/22 08:00 O2 Del Method 07/24/22 08:00 Discharge Plan Discharge Patient Disposition: Left Against Medical Advice Condition: Stable Prescriptions: New aspirin 81 mg capsule 81 mg PO DAILY Qty: 30 0RF atorvastatin 40 mg tablet 40 mg PO QPM Qty: 30 0RF Coreg 12.5 mg tablet 12.5 mg PO BID Qty: 60 0RF Rx Instructions: must administer with a meal/food hydralazine 100 mg tablet 100 mg PO TID Qty: 90 0RF Referrals: Trina Eastman FNP-C [Nurse Practitioner] - 4-7 days (Patient will need a new PCP appointment to establish primary care @ [facility]) Discharge Diet: Regular Discharge Activity: Resume usual activity Patient Instructions: Opioid Safety Discharge Attestations Time Spent in Discharge Care*: greater than 30 min Specific Discharge Activities: educating patient, discussing with pcp/other providers, discussing with watch case polisher/social workers/dc planners, documenting/other paperwork and evaluating patient/reviewing data Time Spent in Smoking Cessation: more than 10 minutes Status at Discharge: Cognitive status at discharge: mildly impaired cognition, Behavioral status at discharge: can be uncooperative and independent in ADL's, Functional status at discharge: independent ambulation, Overall status at discharge: patient is back to baseline Quality Metrics Clinical Quality Measures [ No reported AMI, CVA or VTE this stay] Coding Level of Care Code Acute [facility] note Diagnoses Hypertensive emergency I16.1 CVA (cerebral vascular accident) I63.9 HTN (hypertension) I10 Elevated troponin R77.8
== END 2022-07-24 10:40 | disposition left against medical advice (07) ==
LOC: ER 22:18 → ICU 07-22 02:10 → MEDSURG 07-24 08:10 → ICU 07-28 12:04
PROVIDERS: Internal Medicine; Admitting Provider Internal Medicine; Emergency Provider Emergency Medicine; Visit Provider Student in an Organized Health Care Education/Training Program
DX: I16.1 Hypertensive emergency (principal); I63.9 Cerebral infarction, unspecified; I10 Essential (primary) hypertension; R77.8 Other specified abnormalities of plasma proteins; Z86.73 Personal history of transient ischemic attack (TIA), and cerebral infarction without residual deficits; Z91.14 Patient's other noncompliance with medication regimen
CPT/HCPCS: 36415; 36416; 70450; 70496; 70498; 71045; 80053; 80061; 80306; 81001; 81025; 82550; 82962; 83036; 83540; 83550; 83880; 84443; 84484; 85025; 85610; 85730; 86140; 93005; 93306; 94640; 96372; 96374; 96375; 99291; 99292; G0378; J0360; J1650; J1940; J2405; J3490; Q9967